=== PATIENT | male | born 1970 | race Caucasian/White ===

== ENCOUNTER 2021-06-13 09:01 | Emergency (ER) | payer OTHER, SELFPAY ==
--- NOTE | ~2021-06-13 | XR_ITS ---
EXAMINATION: XR CHEST CLINICAL INFORMATION: Cough with chest pain and shortness of breath COMPARISON: None TECHNIQUE: AP portable view of the chest was obtained. FINDINGS: Heart normal size. No evidence of pulmonary edema. No pneumothorax or pleural effusion. No confluent disease. About the left lower lung there is an oval density measuring approximately 1.5 x 0.8 cm in size this does not appear to represent nipple shadow. About the right upper lobe there is an irregular density which may represent superimposition of densities however nodule not excluded. This measures approximately 1 cm in diameter. XR/XR chest 1V IMPRESSION: No evidence of pulmonary edema or significant acute parenchymal disease. Lung densities as described which CT scan of the chest may be of help in further evaluation.
[2021-06-13 09:07] VITALS: BP 133/79; PULSE 112; RESP 24; TEMP 37.8; O2SAT 96; BMI 23.9
[2021-06-13] MEDS: Acetaminophen 325 MG TABLET 650 MG PO (09:12)
--- NOTE | 2021-06-13 09:57 | ED_ITS ---
HPI - General Adult General Chief complaint: General Medical Stated complaint: diff breathing, cough Time Seen by Provider: 06/13/21 09:44 Source: patient Mode of arrival: ambulatory Limitations: no limitations History of Present Illness HPI narrative: 51-year-old male who presents emergency department for evaluation of headache, cough, shortness of breath x1 half weeks. Patient states that he has a cough which is productive of bright yellow sputum which is occasionally thickened occasionally thin. He has had subjective fever intermittently. He states that he is having chest pain. He points to the center of his chest when asked to localize the pain. States that it is a sharp pain that is worse with breathing and worse with movement-he believes that he pulled a muscle from coughing. He does feel short of breath and has dyspnea on exertion. States that he is having pain in both ears with decreased hearing the right ear. Related Data Previous Rx's Medication Instructions Recorded amoxicillin 875 mg-potassium 1 tab PO Q12H 10 Days #20 tab 06/13/21 clavulanate 125 mg tablet (Augmentin) Allergies Allergy/AdvReac Type Severity Reaction Status Date / Time cephalexin [From Keflex] Allergy Unknown Verified 06/13/21 09:10 haloperidol [From Haldol] Allergy Unknown Verified 06/13/21 09:10 latex Allergy Unknown Verified 06/13/21 09:10 Review of Systems Review of Systems: Yes all other systems are reviewed and are negative [facility] Past Medical History Medical History Epilepsy Narcolepsy Transgender Social History Social History Advance Directives: No Advance Directives Information Provided: No Physical Exam Vital Signs: Vital Signs: Last Vital Signs Temp 100.0 F 06/13/21 09:07 Pulse 112 H 06/13/21 09:07 Resp 24 H 06/13/21 09:07 BP 133/79 06/13/21 09:07 Pulse Ox 96 06/13/21 09:07 Body Mass Index 23.9 Const: General: cooperative and no acute distress Orientation/consciousness: oriented to person and oriented to place Limitations: no limitations HENMT: Head: Yes normal to inspection, Yes normocephalic and Yes atraumatic Ears: external ears normal, TM's normal bilaterally and other (Bilateral cerumen impaction removed by irrigation by nurse) General nose exam: Normal external nose present Face and sinus: Yes sinus tenderness (Bilateral frontal and maxillary, moderate) Mouth: Normal oral and palatal mucosa present Throat: Yes posterior oropharynx normal Eyes: General: appearance normal, both eyes and all related structures Pupils: Equal, round and reactive pupils present Neck: Neck: Yes normal visual inspection, Yes no lymphadenopathy, Yes trachea midline and Yes supple Chest: Chest palpation & inspection: normal inspection of the chest and normal palpation of entire chest wall Resp: Effort & Inspection: normal respiratory effort and able to speak in complete sentences Auscultation: rhonchi (Diffuse) Cardio: Rate: regular rate Rhythm: regular rhythm Heart sounds: S1 normal heart sound present, S2 normal heart sound present and no murmurs GI: Inspection: Yes normal to inspection Palpation (GI): Soft to palpation, nontender and no guarding Auscultation: normal bowel sounds : General: Yes no CVA tenderness Back/Spine/Pelvis: Back: no CVA tenderness Skin: General skin exam: no rashes or lesions noted Neuro: General: oriented to person and oriented to place Cranial nerves: Yes CN's II-XII intact bilaterally and Yes Equal, round and reactive pupils present Cognition (Neuro): normal cognition Motor exam (neuro): 5/5 motor strength present throughout Extrem: General: Yes normal to inspection Psych: Appearance: grossly normal Speech and movement: Normal speech and movement present Affect: normal affect Attitude: cooperative Thought process: Normal thought process present Thought content: Normal thought content present Course Course Course Narrative: 51-year-old male who presents emergency department for evaluation of headache, shortness of breath and productive cough x1 week. The patient has had subjective fever as well as pleuritic chest pain. Vital signs revealed tachycardia with a pulse of 112 and tachypnea with respiratory 24. Had a fever with a temperature of 100? F in his O2 saturation was 96% on room air. The patient did have tenderness palpation over his frontal and maxillary sinuses bilaterally. Lung exam revealed diffuse rhonchi. The patient was complaining of bilateral ear plane and he had cerumen impaction which was removed by your gauge [place] by the ED nurse. Tympanic membranes were clear after irrigation. Chest x-ray revealed no pneumonia. Radiologist noted some bilateral dense these but I reviewed this x-ray and did not think that these are since the incident. Patient will be treated for sinusitis and acute bronchitis with Augmentin 875/125 every 12 hours times 10 days. He was advised to take Tylenol and ibuprofen for his pain. He was given a work note not return to work until 06/17/2021. He was given printed and verbal instructions and discharged home. Medical Decision Making Lab Data Labs: Lab Results 06/13/21 Range/Units 09:14 Influenza Type A (PCR) NEGATIVE (Negative) Influenza Type B (PCR) NEGATIVE (Negative) RSV RNA Qual (PCR) NEGATIVE (Negative) SARS-CoV-2 RNA (RT-PCR) NEGATIVE (Negative) Discharge Plan Discharge Clinical Impression: Bronchitis Sinusitis Qualifiers: Sinusitis location: unspecified location Chronicity: acute Recurrence: non- recurrent Qualified Code(s): J01.90 - Acute sinusitis, unspecified Patient Disposition: Home, Self-Care Instructions: Sinusitis (ED), Acute Bronchitis (ED) Additional Instructions: Your COVID-19, influenza and RSV virus test were all negative. Your chest x-ray did not reveal any evidence for pneumonia. Your symptoms and findings are consistent with sinus infection and bronchitis. Take Augmentin (amoxicillin/clavulanic acid 875/125) 1 pill every 12 hours for 10 days. Take ibuprofen 200 mg pills, 3 pills every 6 hours as needed for pain. Take Tylenol (acetaminophen) 500 mg pills, 2 pills every 4 to 6 hours as needed for pain. Follow-up with your doctor in 2 days. Please return to the emergency department if your symptoms get worse or if you develop any symptoms that are concerning to you. Prescriptions: New amoxicillin-pot clavulanate [Augmentin] 875-125 mg tablet 1 tab PO Q12H 10 Days Qty: 20 RF: 0 Stand Alone Forms: Work/School Release
[2021-06-13 09:58] LABS: Influenza A PCR NEGATIVE (Negative); Influenza B PCR NEGATIVE (Negative); Resp Syncy Virus RNA Qual PCR NEGATIVE (Negative); SARS COV2 PCR INHOUSE NEGATIVE (Negative)
--- NOTE | 2021-06-13 11:40 | PC.NURSE ---
pt's ear irrigated for large amts wax
== END 2021-06-13 11:44 | disposition home or self-care (01) ==
PROVIDERS: Emergency Provider Emergency Medicine Emergency Medical Services
DX: J01.90 Acute sinusitis, unspecified (principal); J40 Bronchitis, not specified as acute or chronic; Z20.822 Contact with and (suspected) exposure to COVID-19
CPT/HCPCS: 0241U; 36415; 71045; 99283

== ENCOUNTER 2025-04-26 22:21 | Emergency (ER) | payer OTHER, SELFPAY ==
--- NOTE | ~2025-04-26 | XR_ITS ---
CLINICAL HISTORY: fall 2 view chest x-ray Comparison: None provided Findings: No consolidation or effusion. Normal size heart. No acute fracture. IMPRESSION: 1. No acute findings. This document has been electronically signed by: Gio Greenberg MD on 04/26/2025 23:21:09
[2025-04-26 22:24] VITALS: BP 145/80; PULSE 100; RESP 15; TEMP 36.4; O2SAT 99; BMI 24.5
[2025-04-27 00:42] VITALS: BP 143/81; PULSE 92; RESP 16; TEMP 36.9; O2SAT 96
--- OUTSIDE RECORDS SUMMARY | 2025-04-27 00:51 | XMS_ITS | Encounter Summary ---
Author Organization [employer] Address [address] [place] [address] [place] [address] Care Team Providers Care Press Feeder Broomcorn Name Role Phone Roya King Unavailable Won Lino Primary Care Provider [phone] Reason for Visit * Reason Comments Med Refill Encounter Details Date Type Department Care Team ([facility] st Contact Info) Description 08/06/2024 Refill [facility] [address] [place] [phone] Won Lino PA [address] [place], [place] [phone] Transgender man on hormone therapy Social History Tobacco Use Types Packs/Day Years Used Date Smoking Tobacco: Every Day Cigarettes 0.5 40 Smokeless Tobacco: Never Alcohol Answer Date Recorded How often do you have a drink containing alcohol ? 1 10/24/2023 How many drinks containing a lcohol do you have on a typical day when you are drinking? 0 10/24/2023 How often do you have six or more drinks on one occasion? 0 10/24/2023 Housing Stability Answer Date Recorded What is your housing situation today? I have erlin bo 07/25/[address] you li ve. Do you have problems with any of the following? None of the above 07/25/2023 Food Insecurity Answer Date Recorded Within the past 12 months, y ou worried that your food would run out before you got money to buy more: Never True 06/28/2024 Within the past 12 months,th e food you bought just didn't last and you didn't have enough money to get more: Never True Transportation Answer Date Recorded In the past 12 months, has l ack of transportation kept you from medical appts, meetings, work or from getting things needed for daily living? No 06/28/2024 Intimate Partner Violence Answer Date R ecorded Within the last year, have y ou been afraid of your partner or ex-partner? 2 10/24/2023 Within the last year, have y ou been humiliated or emotionally abused in other ways by your partner or ex-partner? 2 Within the last year, have y ou been kicked, hit, slapped, or otherwise physically hurt by your partner or ex-partner? 2 10/24/2023 Within the last year, have y ou been raped or forced to have any kind of sexual activity by your partner or ex-partner? 2 10/24/2023 Utilities Answer Date Recorded In the past 12 months, has t he electric, gas, oil or water company threatened to shut off services in your home? No 07/25/2023 Depression Answer Date Recorded Patient Health Questionnaire-2 Score 0 07/25/2023 Internet Access Answer Date Recorded Internet Access Q1 Yes 06/28/2024 Internet Access Q2 Not on file 06/28/2024 Comments Unknown Sex and Gender Information Value Date Recorded Sex Assigned at Female 07/04/2022 10:15 AM EST Legal Sex Male 8:40 PM EDT Gender Identity Two Spirit 12/29/2024 10:22 AM EDT Sexual Orientation Aromantic 12/29/2024 10 :22 AM EDT Sexual Orientation Asexual 12/29/2024 10 :22 AM EDT documented as of this encounter Miscellaneous Notes * Telephone Encounter - JUSTIN Ortiz - 08/06/2024 12:33 PM EST Incorrect dosing. Current dosing is Inject 1 mL (200 mg) into the muscle every 14 (fourteen) days. Alternatively inject 0.5 mL (100mg) every 7 days. And this was r/f on 07/16 so should be all set. Can you please make sure? * Telephone Encounter - Stefania Minmarva - 08/06/2024 9:44 AM EST PCP: JUSTIN Ortiz Last in-person office visit: 06/28/2024 JUSTIN Ortiz Lab Results Component Value Date BUN 16 05/12/2024 CREATININE 0.85 05/12/2024 K 4.3 05/12/2024 Assessment: [x] Protocol passed [] Lab due [] Appointment due Plan: [x] Please refill for 30 days [] Lab [] BMP [] TSH [] A1C [] Appointment due: Future Appointments Date Time Provider Department Center 08/09/2024 10:40 AM JUSTIN Ortiz [facility] Comments: documented in this encounter Plan of Treatment Not on file documented as of this encounter Visit Diagnoses Diagnosis Transgender man on hormone therapy documented in this encounter Care Teams Press Feeder Broomcorn Relationship Specialty Start Date End Date Won Lino PA [address] [place] [address] PCP - General Family Medicine 06/17/23 Roya King [address] [place] [address] 02/20/23 documented as of this encounter
--- OUTSIDE RECORDS SUMMARY | 2025-04-27 00:51 | XMS_ITS | Encounter Summary ---
Author Organization [facility] Address [address] [facility] [address] [place] [address] Phone Care Team Providers Care Franchise Business Consultant Name Role Phone Kemi Dumont DREDGING INSPECTOR Primary Care Provider [phone] Connor Haque MD Unavailable Unavailable Suad Haque DREDGING INSPECTOR Primary Care Provider Scott Davey NP Primary Care Provide r Won Lino Primary Care Provider [phone] Encounter Details Date Type Department Care Team (Late st Contact Info) Description 03/16/2020 Procedure Pass [facility], Ct Scan - [address] [address] Social History Tobacco Use Types Packs/Day Years Used Date Smoking Tobacco: Every Day Cigarettes Smokeless Tobacco: Never Alcohol Use Standard Drinks/Week Comments Yes 0 (1 standard drink = 0.6 oz pur e alcohol) occasionally Comments No Sex and Gender Information Value Date Recorded Sex Assigned at Female 10/25/2020 9:39 AM EDT Legal Sex Male 10:37 AM EDT Gender Identity Transgender Male 10/25/2020 9:39 AM EDT Sexual Orientation Queer 03/03/2019 8: 17 AM EDT documented as of this encounter Plan of Treatment Not on file documented as of this encounter Visit Diagnoses Not on filedocumented in this encounter Additional Health Concerns Infection Onset Date Last Indicated Resolved Time 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 Infection Utility Neg MRSA PCR over 2 years since a + MRSA 06/28/2015 06/28/2015 09/18/2022 1:[address] 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 05/11/2019 09/28/2023 1:24 AM EST CoV-Risk 06/07/2020 06/08/2020 06/21/2020 1:24 AM EST CoV-Risk 08/16/2020 08/17/2020 08/26/2020 1:24 AM EST CoV-Risk 03/16/2022 03/16/2022 03/27/2022 1:22 AM EDT CoV-Risk Comment:2 neg covid 09/16/2022 09/16/2022 09/17/2022 6:[address] documented as of this encounter Care Teams Franchise Business Consultant Relationship Specialty Start Date End Date Kemi Dumont NP PCP - General 03/01/19 12/17/21 Suad Haque NP [address] [place] [address] PCP - General Family Medicine 12/18/21 08/04/22 Scott Davey NP [address] [place] [address] PCP - General 08/05/22 03/21/25 Won Lino PA [address] [place] [address] PCP - General Physician Radiographic Technologist 03/22/25 Connor Haque MD Internal Medicine 03/01/19 documented as of this encounter Additional Source Comments The information contained in this document represents components of the legal health record. It is not the complete legal health record.[facility]
--- OUTSIDE RECORDS SUMMARY | 2025-04-27 00:51 | XMS_ITS | Encounter Summary ---
Author Organization [employer] Address [address] [place] [address] [place] [address] Care Team Providers Care Mill Beam Fitter Name Role Phone Roya King Unavailable Won Lino Primary Care Provider [phone] Reason for Visit * Reason Comments Med Refill Encounter Details Date Type Department Care Team ([facility] st Contact Info) Description 08/06/2024 Refill [facility] [address] [place] [phone] Won Lino PA [address] [place], [place] [phone] Transgender man on hormone therapy Social History [...] encounter Miscellaneous Notes * Telephone Encounter - Cathi Mendez LPN - 08/16/2024 2:30 PM EST Returned pt call. LMTCB * Telephone Encounter - Ashely Mcdonald - 08/16/2024 12:55 PM EST Patient is calling back about lab results Call back # [phone] * Telephone Encounter - JUSTIN Ortiz - 08/06/2024 3:13 PM EST Duplicate request and too early for refill. Also incorrect dosing. * Telephone Encounter - Delma Khan MA - 08/06/2024 2:05 PM EST PCP: JUSTIN Ortiz Last in-person office visit: 06/28/2024 JUSTIN Ortiz Lab Results Component Value Date BUN 16 05/12/2024 CREATININE 0.85 05/12/2024 K 4.3 05/12/2024 Assessment: [] Protocol passed [] Lab due [] Appointment due Plan: [] Please refill for 30 days [] Lab [] BMP [] TSH [] A1C [] Appointment due: Future Appointments Date Time Provider Department Center 08/09/2024 10:40 AM JUSTIN Ortiz [facility] Comments: documented in this encounter Plan of Treatment Not on file documented as of this encounter Visit Diagnoses Diagnosis Transgender man on hormone therapy documented in this encounter Care Teams Mill Beam Fitter Relationship Specialty Start Date End Date Won Lino PA [address] [place] [address] PCP - General Family Medicine 06/17/23 Roya King [address] [place] [address] 02/20/23 documented as of this encounter
--- OUTSIDE RECORDS SUMMARY | 2025-04-27 00:51 | XMS_ITS | Encounter Summary ---
Author Organization [employer] Address [address] [place] [address] 7 [place] [address] Care Team Providers Care Loading Shovel Oiler Name Role Phone Roya King Unavailable Won Lino Primary Care Provider [phone] Reason for Visit * Reason Onset Date Comments Med Refill 07/17/2024 Encounter Details Date Type Department Care Team ([facility] st Contact Info) Description 07/17/2024 Refill [facility] [address] [place] [phone] Won Lino PA [address] [place] [address] Social History Tobacco Use Types Packs/Day Years [...] Diagnoses Not on filedocumented in this encounter Care Teams Loading Shovel Oiler Relationship Specialty Start Date End Date Won Lino PA [address] [place] [address] PCP - General Family Medicine 06/17/23 Roya King [address] [place] [address] 02/20/23 documented as of this encounter
--- OUTSIDE RECORDS SUMMARY | 2025-04-27 00:51 | XMS_ITS | Encounter Summary ---
Author Organization [employer] Address [address] [place] [address] 7 [place] [address] Care Team Providers Care Needle Valve Operator Name Role Phone Roya King Unavailable Won Lino Primary Care Provider [phone] Encounter Details Date Type Department Care Team (Late st Contact Info) Description 06/17/2024 Telephone [facility] [address] [place] [address] Won Lino PA [address] [place], [place] [phone] Social History Tobacco Use Types Packs/Day Years [...] before you got money to buy more: Often true 07/25/2023 Within the past 12 months,th e food you bought just didn't last and you didn't have enough money to get more: Often true Transportation Answer Date Recorded In the past 12 months, has l ack of transportation kept you from medical appts, meetings, work or from getting things needed for daily living? Yes, it has kept me from medical appointments or getting medications.;Yes, it has kept me from non-medical meetings, work, or getting things that I need 07/25/2023 Intimate Partner Violence Answer Date R ecorded [...] Recorded Patient Health Questionnaire-2 Score 0 07/25/2023 Comments Unknown Sex and Gender Information Value Date Recorded Sex Assigned at Female 07/04/2022 10:15 AM EST Legal Sex Male 8:40 PM EDT Gender Identity Two Spirit 12/29/2024 10:22 AM EDT Sexual Orientation Aromantic 12/29/2024 10 :22 AM EDT Sexual Orientation Asexual 12/29/2024 10 :22 AM EDT documented as of this encounter Miscellaneous Notes * Telephone Encounter - Alexandra Meza - 06/17/2024 8:27 AM EST Left a voicemail requesting their testosterone be sent to the [facility] in [facility] documented in this encounter Plan of Treatment Not on file documented as of this encounter Visit Diagnoses Not on filedocumented in this encounter Care Teams Needle Valve Operator Relationship Specialty Start Date End Date Won Lino PA [address] [place] [address] PCP - General Family Medicine 06/17/23 Roya King [address] [place] [address] 02/20/23 documented as of this encounter
--- OUTSIDE RECORDS SUMMARY | 2025-04-27 00:51 | XMS_ITS | Encounter Summary ---
Author Organization [facility] Address [address] [facility] [address] [place] [address] Phone Care Team Providers Care Tree Cutter Name Role Phone Kemi Dumont NP Primary Care Provider [phone] Connor Haque MD Unavailable Unavailable Suad Haque BOAT JOINER HELPER Primary Care Provider Scott Davey NP Primary Care Provide r Won Lino Primary Care Provider [phone] Encounter Details Date Type Department Care Team (Latest Contact Info) Description 08/16/2020 Transcribe Orders Virtual Department [address] [place] [address] Kemi Dumont, BOAT JOINER HELPER [address] [place] [address] Fever, unspecified fever cause (Primary Dx); Muscle ache Social History Tobacco Use Types Packs/Day Years [...] on file documented as of this encounter Results * COVID-19 PCR Order (08/17/2020 8:01 AM EST) COVID Testing Status Specimen received in analyzing lab. [facility] Symptomatic? YES [facility] Other 08/17/2020 8:01 AM EST 08/17/2020 3:46 PM EST Kemi Dumont BOAT JOINER HELPER BODY FLUIDS AND STOOLS OR DERABLES Final Result [facility] [address] [place] [address] 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 05/11/2019 09/28/2023 1:24 AM EST CoV-Risk 08/16/2020 08/17/2020 08/26/2020 1:24 AM EST CoV-Risk 03/16/2022 03/16/2022 03/27/2022 1:22 AM EDT CoV-Risk Comment:2 neg covid 09/16/2022 09/16/2022 09/17/2022 6:[address] documented as of this encounter Care Teams Tree Cutter Relationship Specialty Start Date End Date Kemi Dumont NP PCP - General 03/01/19 12/17/21 Suad [place] [address] PCP - General Family Medicine 12/18/21 08/04/22 Scott Davey NP [address] [place] [address] PCP - General 08/05/22 03/21/25 Won Lino PA [address] [place] [address] PCP - General Physician Procurement Consultant 03/22/25 Connor Haque MD Internal Medicine 03/01/19 documented as of this encounter Additional Source Comments The information contained in this document represents components of the legal health record. It is not the complete legal health record.[facility]
--- OUTSIDE RECORDS SUMMARY | 2025-04-27 00:51 | XMS_ITS | Encounter Summary ---
Author Organization [employer] Address [address] [place] [address] [place] [address] Care Team Providers Care Boiler Repair Supervisor Name Role Phone Roya King Unavailable Won Lino Primary Care Provider [phone] Reason for Visit * Reason Comments Med Refill Encounter Details Date Type Department Care Team (Late st Contact Info) Description 04/23/2025 Refill [facility] [address] [place] [phone] Won Lino PA [address] [place] [address] Urinary symptom or sign Social History Tobacco Use Types Packs/Day Years Used Date Smoking Tobacco: Every Day Cigarettes 0.5 40 Smokeless Tobacco: Never Alcohol Use Standard Drinks/Week Comments Never 0 (1 standard drink = 0.6 oz pur e alcohol) Alcohol Answer Date Recorded How often do [...] encounter Miscellaneous Notes * Telephone Encounter - [facility] [place] - 04/25/2025 8:39 AM EDT PCP: JUSTIN Ortiz Last in-person office visit: 03/04/2025 JUSTIN Ortiz Lab Results Component Value Date BUN 16 05/12/2024 CREATININE 0.85 05/12/2024 K 4.3 05/12/2024 Assessment: [x] Protocol passed [] Lab due [] Appointment due Plan: [x] Please refill for 30 days [] Lab [] BMP [] TSH [] A1C [] Appointment due: No future appointments. Comments: documented in this encounter Plan of Treatment Not on file documented as of this encounter Visit Diagnoses Diagnosis Urinary symptom or sign documented in this encounter Care Teams Boiler Repair Supervisor Relationship Specialty Start Date End Date Won Lino PA [address] [place] [address] PCP - General Family Medicine 06/17/23 Roya King [address] [place] [address] 02/20/23 documented as of this encounter
--- OUTSIDE RECORDS SUMMARY | 2025-04-27 00:51 | XMS_ITS | Encounter Summary ---
Author Organization [employer] Address [address] [place] [address] [place] [address] Care Team Providers Care Automation Architect Name Role Phone Suad Haque Unavailable Unavailable Suad Haque Primary Care Provider Unavailab Hannah Owensionna Unavailable CarterGloria Unavailable [phone] Obey Sánchez Unassigned Primary Care Provider Won Zabala Primary Care Provider [phone] Reason for Visit * Reason Comments Med Refill Encounter Details Date Type Department Care Team (Late st Contact Info) Description 06/03/2023 Refill [facility] [address] [place] [id number] Holly Patel FNP [address] [place] [address] Seizure disorder, focal sensory (CMS/HCC); Bipolar disorder with severe depression (CMS/HCC) Social History Tobacco Use Types Packs/Day Years Used Date Smoking Tobacco: Every Day Cigarettes 0.5 40 Smokeless Tobacco: Never Comments Unknown Sex and Gender Information Value [...] as of this encounter Visit Diagnoses Diagnosis Seizure disorder, 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
--- OUTSIDE RECORDS SUMMARY | 2025-04-27 00:51 | XMS_ITS | Encounter Summary ---
Author Organization [employer] Address [address] [place] [address] 7 [place] [address] Care Team Providers Care Telecommunications Project Manager Name Role Phone Roya King Unavailable Won Lino Primary Care Provider [phone] Reason for Visit * Reason Onset Date Comments Med Refill 2025 Encounter Details Date Type Department Care Team (Late st Contact Info) Description 2025 Refill [facility] [address] [place] [address] Leelee Barone LPN [address] [place] [id number] Panic disorder Social History Tobacco Use Types Packs/Day Years [...] * Telephone Encounter - JUSTIN Ortiz - 04/22/2025 7:59 AM EDT Refusing request as pt admitted to inpatient psych unit in [place] yesterday. * Telephone Encounter - Leelee Barone LPN - 2025 5:02 PM EDT PCP: JUSTIN Ortiz Last in-person office visit: Visit date not found PDMP last fill:03/04 Refill due:04/01 Last contract date: No scanned or signed documents on file Last tox screen date: Last Urine/Oral Toxicology Screen: 09/06/24 0000 Lab Results Component Value Date AMPHETAMINES NEGATIVE 09/06/2024 BARBITURATES NEGATIVE 09/06/2024 BENZODIAZEPI POSITIVE (A) 09/06/2024 BUPRENORPHIN NEGATIVE 09/06/2024 FENTANYL NEGATIVE 09/06/2024 HEROINMETAB NEGATIVE 09/06/2024 MDMA NEGATIVE 09/06/2024 MEPROBAMATE NEGATIVE 09/06/2024 NICOTINEMET POSITIVE (A) 09/06/2024 OPIATES NEGATIVE 09/12/2023 PHENCYCLIDIN NEGATIVE 09/06/2024 TAPENTADOL NEGATIVE 09/06/2024 ZOLPIDEM NEGATIVE 09/06/2024 Assessment: [] Nursing protocol passed [x] Contract due [x] Toxicology due [] Appointment due [] PDMP red flags [] Care plan adjustment needed Plan: [x] Please approve refill for 28 days [] Appointment with nursing: [] Appointment with JUSTIN Ortiz: Future Appointments Date Time Provider Department Center 06/13/2025 2:00 PM JUSTIN Ortiz [facility] Comments: Pt needs tox and contract documented in this encounter Plan of Treatment Not on file documented as of this encounter Visit Diagnoses Diagnosis Panic disorder Panic disorder without agoraphobia documented in this encounter Care Teams Telecommunications Project Manager Relationship Specialty Start Date End Date Won Lino PA [address] [place] [address] PCP - General Family Medicine 06/17/23 Roya King [address] [place] [address] 02/20/23 documented as of this encounter
--- OUTSIDE RECORDS SUMMARY | 2025-04-27 00:51 | XMS_ITS | Clinical Summary ---
Author Organization [employer] Address [address] [place] [address] 7 [place] [address] Care Team Providers Care Dialysis Social Worker Name Role Phone Roya King Unavailable Won Lino Primary Care Provider [phone] Allergies Active Allergy Reactions Criticality Noted Date Comments Bupropion 03/01/2019 Cephalexin Anaphylaxis High 01/04/2018 Other reaction(s): Unknown Clozapine 03/01/2019 Codeine 03/01/2019 Declines this is an allergy Fluoxetine 03/01/2019 Haloperidol 06/22/2017 Kiwi Extract 06/17/2017 Latex 06/04/2017 Midazolam 03/01/2019 Morphine 03/01/2019 Declines this is an allergy Paroxetine Hcl 03/01/2019 Sertraline 03/01/2019 Medications * This document contains information received from the source organization and may not represent a complete record from that organization. Syringe/Needle, Disp, (B-D 3CC LUER-NIKI SYR 22GX1 ) 22G X 1 3 ML miscIndications:T ransgender man on hormone therapy Use as directed inject testosterone. 4 each 2 024 Active Needle, Disp, (BD SafetyGlide Needle) 25G X 1 miscIndications:T ransgender man on hormone therapy Use as directed once weekly to inject medication. 12 each Active ipratropium-albut ronna (Combivent Respimat) 20-100 MCG/ACT inhalerIndication s:Moderate persistent asthma without complication Inhale 1 puff if needed in the morning, at noon, in the evening, and at bedtime for wheezing or shortness of breath. 4 g 11 Active gabapentin (Neurontin) 400 MG capsuleIndication s:Toxic polyneuropathy (CMS/HCC) Take 2 capsules (800 mg) by mouth 3 times daily. 180 capsule 1 2024 Active BD Disp [place] 18G X 1-08/05 miscIndications:T ransgender man on hormone therapy USE DIRECTED TO DRAW UP TESTOSTERONE INTO SYRINGE ONCE WEEKLY 12 each Active methylphenidate (Ritalin) 5 MG tablet Take 1 tablet (5 mg) by mouth 2 times daily. 60 tablet 2024 Active diazePAM (Valium) 5 MG tabletIndications :Anxiety,Muscle Spasm Take 0.5 tablets (2.5 mg) by mouth in the morning. 30 tablet 2 2024 Active testosterone cypionate (Depo-Testosteron e) 200 MG/ML injectionIndicati ons:Transgender man on hormone therapy Inject 1 mL (200 mg) into the muscle every 14 (fourteen) days. Alternatively inject 0.5 mL (100mg) every 7 days. 4 mL 2 Active clonazePAM (KlonoPIN) 2 MG tabletIndications :Schizoaffective disorder, bipolar type (CMS/HCC) Take 1 tablet (2 mg) by mouth if needed in the morning and at bedtime for seizures. 60 tablet 2024 Active Syringe, Disposable, (B-D SYRINGE LUER-NIKI 3CC) 3 ML miscIndications:T ransgender man on hormone therapy Use as directed once weekly to draw up and inject medication. 12 each Active Needle, Disp, 23G X 1 misc Use as directed once weekly to inject medication intramuscularly . 12 each Active diazePAM (Valium) 5 MG tabletIndications :Anxiety,Muscle Spasm Take 0.5 tablets (2.5 mg) by mouth in the morning. 30 tablet 2 025 2025 Active tamsulosin (Flomax) 0.4 MG 24 hr capsuleIndication s:Urinary symptom or sign TAKE 1 CAPSULE BY MOUTH EVERY DAY 90 capsule Active Needle, Disp, 23G X 1 misc Use as directed once weekly to inject medication intramuscularly . 12 each 2024 Discontinued(R eorder (will not trigger notification to Pharmacy)) clonazePAM (KlonoPIN) 2 MG tabletIndications :Schizoaffective disorder, bipolar type (CMS/HCC) Take 1 tablet (2 mg) by mouth if needed in the morning and at bedtime for seizures. 60 tablet 2 2024 Discontinued(R eorder (will not trigger notification to Pharmacy)) methylphenidate (Ritalin) 5 MG tablet Take 1 tablet (5 mg) by mouth 2 times daily. 60 tablet 025 2024 Discontinued(R eorder (will not trigger notification to Pharmacy)) diazePAM (Valium) 5 MG tabletIndications :Anxiety,Muscle Spasm Take 0.5 tablets (2.5 mg) by mouth in the morning. 30 tablet 2 025 2024 Discontinued(R eorder (will not trigger notification to Pharmacy)) BD Disp [place] 18G X 1-1/2 miscIndications:T ransgender man on hormone therapy USE DIRECTED TO DRAW UP TESTOSTERONE INTO SYRINGE ONCE WEEKLY 12 each 2024 Discontinued(R eorder (will not trigger notification to Pharmacy)) Syringe, Disposable, (B-D SYRINGE LUER-NIKI 3CC) 3 ML miscIndications:T ransgender man on hormone therapy Use as directed once weekly to draw up and inject medication. 12 each 025 2024 Discontinued(R eorder (will not trigger notification to Pharmacy)) testosterone cypionate (Depo-Testosteron e) 200 MG/ML injectionIndicati ons:Transgender man on hormone therapy Inject 1 mL (200 mg) into the muscle every 14 (fourteen) days. Alternatively inject 0.5 mL (100mg) every 7 days. 4 mL 2 03/03/ 025 2024 Discontinued(R eorder (will not trigger notification to Pharmacy)) tamsulosin (Flomax) 0.4 MG 24 hr capsuleIndication s:Urinary symptom or sign Take 1 capsule (0.4 mg) by mouth Once per day. 30 capsule 2 025 2024 Discontinued Needle, Disp, 23G X 1 misc Use as directed once weekly to inject medication intramuscularly . 12 each 3 025 2024 Discontinued(R eorder (will not trigger notification to Pharmacy)) Syringe, Disposable, (B-D SYRINGE LUER-NIKI 3CC) 3 ML miscIndications:T ransgender man on hormone therapy Use as directed once weekly to draw up and inject medication. 12 each 3 2024 Discontinued(R eorder (will not trigger notification to Pharmacy)) testosterone cypionate (Depo-Testosteron e) 200 MG/ML injectionIndicati ons:Transgender man on hormone therapy Inject 1 mL (200 mg) into the muscle every 14 (fourteen) days. Alternatively inject 0.5 mL (100mg) every 7 days. 4 mL 2 025 2024 Discontinued(R eorder (will not trigger notification to Pharmacy)) methylphenidate (Ritalin) 5 MG tablet Take 1 tablet (5 mg) by mouth 2 times daily. 60 tablet 025 2024 Discontinued(R eorder (will not trigger notification to Pharmacy)) clonazePAM (KlonoPIN) 2 MG tabletIndications :Schizoaffective disorder, bipolar type (CMS/HCC) Take 1 tablet (2 mg) by mouth if needed in the morning and at bedtime for seizures. 60 tablet 025 2024 Discontinued(R eorder (will not trigger notification to Pharmacy)) Active Problems Problem Noted Date Diagnosed Date Syphilis 09/06/2024 Overview (09/06/2024): Hx/o syphilis treated in 2020. RPR at that time 1:4. Rechecked 08/2024 RPR 1:32 representing reinfection given > four-fold increase. Assessment & Plan (09/06/2024 3:27 PM EST): Keflex allg so treating with doxy 100mg BID x 28 days. Pt to obtain script today and begin treatment. Reviewed precautions for esophagitis. Complete treatment as prescribed. Recheck RPR in 6 months. Nursing to continue attempts to close loop with DP; they have been unable to reach their office to confirm latest details. Neuropathy of left upper extremity 09/06/2024 Assessment & Plan (11/08/2024 5:10 PM EDT): Stable left cubital tunnel syndrome. Labs pending (TSH, B12, folate) for pt to complete. Continue activity modification and home exercises. Assessment & Plan (09/06/2024 3:28 PM EST): Chronic LUE neuropathy seemingly consistent with cubital tunnel syndrome. - Provide exercises for cubital tunnel syndrome. Additional labs to check thyroid, vitamin B12, and folic acid levels. Patient declined referral to a hand specialist. Follow-up in one month to assess progress. Polysubstance abuse 09/12/2023 Assessment & Plan (09/12/2023 1:41 PM EST): Ongoing polysubstance abuse. POCT Utox + today for cocaine, methamphetamines, amphetamines, THC. Will send out to lab for further testing and continue to monitor. Discuss further w/ applied psychology teacher at visit scheduled for next month. Transgender man on hormone therapy 07/25/2023 Overview (06/28/2024): Started therapy in 40's. States has changed his life for the better. Feels comfortable with gender presentation. Assessment & Plan (03/04/2025 5:12 PM EDT): Transgender man stable on hormone therapy with testosterone 200mg q2 weeks or 100mg weekly. Continue to monitor; repeat order placed for testosterone lab monitoring to be done in the morning midway between injections. Orders: Testosterone, Total, MS; Future Assessment & Plan (12/30/2024 3:14 PM EDT): Transgender man stable on hormone therapy with testosterone 200mg q2 weeks or 100mg weekly. Refill sent to [facility] in [place]. Continue to monitor. Assessment & Plan (08/09/2024 11:31 AM EST): Transgender man stable on hormone therapy. Clarified dosing regimen is 200 mg (1 mL) every two weeks or 100 mg (0.5 mL) weekly. Continue to monitor. Assessment & Plan (06/28/2024 2:13 PM EST): Transgender man stable on hormone therapy. 05/2024 T therapeutic at 556. Continue current therapy and continue to monitor. Assessment & Plan (12/14/2023 8:51 PM EDT): Stable. Pt due for monitoring labs but prefers to wait until on more consistent dosing; has missed last 2 weeks due to issues with unstable housing. Will obtain when able to be more consistent. Assessment & Plan (09/12/2023 1:34 PM EST): Stable. Due for repeat monitoring labs previously placed. Given currently 2 weeks overdue from last injection, pt will restart this week then return for repeat mid-dose labs in 6-8 wks prior to next f/u visit for review together at that time. Assessment & Plan (07/25/2023 1:45 PM EST): Stable. Continue current dose testosterone and obtain repeat monitoring labs this month. Pt to return to provide labs midway in injection. Back pain due to injury 12/13/2022 Asthma 12/13/2022 Overview (12/30/2024): Stable asthma on prn combivent. Assessment & Plan (12/30/2024 3:14 PM EDT): Stable. Combivent refilled to [facility]. Continue to monitor. Assessment & Plan (07/25/2023 1:48 PM EST): Stable. Combivent refilled. Continue to monitor. Obtain more info, consider order PFTs and/or regimen escalation if needed. Panic disorder 12/13/2022 Overview (12/31/2023): Currently in Withdrawal from klonipin - we will begin a patient driven taper. Damion would like to start with current dosing of 1 qam and 2 mg at bedtime then we will reduce when he is comfortable to reduce - he is wnating to reduce his imprint within [employer]. ADHD, impulsive type 07/04/2022 Overview (12/31/2023): Forgetful, impulsive , speech is rapid and intense Patient is also in withdrawal from klonipin at this time. This is overwhelming. Narcolepsy and cataplexy 07/04/2022 Overview (12/31/2023): Has had it since 20s, nod head then pass out A [place], Coq10, Thianine, Thiamine, Glutamine and magnesium, Seizure disorder, focal sensory 07/04/2022 Overview (07/25/2023): Self-discontinued keppra. States it is poisoning him. No recent seizures. Assessment & Plan (12/14/2023 8:50 PM EDT): Stable. Offered neuro referral for specialist evaluation/ management. Pt declining for now - prefers to wait until more stable housing then revisit. In interim continue klonopin and continue to monitor. Assessment & Plan (09/12/2023 1:36 PM EST): Stable. Continue klonopin and continue to monitor. Encourage further evaluation and alternative AED; currently complicated by active schizoaffective bipolar disorder. Assessment & Plan (07/25/2023 1:47 PM EST): Stable. Continue klonopin. Discuss further at future visit to obtain more info and consider alternative AED. Sheltered homelessness 07/04/2022 Assessment & Plan (12/14/2023 8:52 PM EDT): Will be temporarily residing at ex-girlfriend's in [place], [place], while awaiting more permanent solution possibly apartment in [place]. 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 Tic disorder 10/22/2021 Intractable nausea and vomiting 05/11/2019 Overview (12/13/2022): Last Assessment & Plan: Patient was initially hospitalized 05/09- where he was found to have a large left ureteral stone measuring 10 mm with hydronephrosis and question of ileus. He underwent cystoscopy and placement of left ureteral stent, and postprocedure, was very insistent upon discharge. In fact did not wait to receive final paperwork and left the hospital. He returned back to the ED with nausea vomiting and abdominal pain one day later. He may have a mild ileus contributing to his symptoms. Stent was removed today by urology and he is gradually improving with supportive management --Due to IV fluids and PRN antiemetics --On clear liquid diet, may advance as tolerated this evening --On ceftriaxone. Urine culture from 05/07 polymicrobial. Culture from 05/11 now demonstrating [id number] colonies E. coli. Await sensitivities Kidney stone 05/09/2019 Overview (12/13/2022): Last Assessment & Plan: Presented with abdominal pain. CT imaging showed left ureteral stones and question of enterocolitis or ileus. Resolved leukocytosis overnight. He has been afebrile. --To OR today for cystoscopy and stent placement --N.p.o., IV fluids, PRN analgesics --IV ceftriaxone, likely can DC soon. UA from 05/07 showed TNTC WBC though culture demonstrated only mixed piter. UA 05/09 without pyuria Schizoaffective disorder, bipolar type 7 Assessment & Plan (12/30/2024 3:17 PM EDT): Stable but symptomatic bipolar-type schizoaffective disorder with slight improvement since last evaluation. Message sent to applied psychology teacher Vero Alvarado with request to send prescriptions to [facility] in [place]. He will attend f/u appt with her on 01/05 and f/u with me again on 01/24 or sooner if needed. Assessment & Plan (12/21/2024 12:21 PM EDT): Bipolar-type schizoaffective disorder with acute anxiety exacerbation and difficulties leaving the house. Called [facility] to advocate for dispensing diazepam prescribed by applied psychology teacher Vero Alvarado. They continue to refuse to fill the prescription due to discomfort around dual benzodiazepine therapy. Sent direct message to Vero Alvarado and requested she follow up directly with the pharmacy, or consider increasing klonopin dose/ frequency as an alternative to the new prescription of valium. Assessment & Plan (11/08/2024 5:09 PM EDT): Symptomatic though largely stable bipolar-type schizoaffective disorder. Not in acute crisis. Continue gabapentin 800mg TID and klonopin 1mg BID/ 2mg QHS. No concern for misuse/ diversion at this time. Assessment & Plan (09/06/2024 3:22 PM EST): Stable bipolar-type schizoaffective disorder. Continue klonopin 1mg BID and 2mg QHS. Continue gabapentin 800mg TID. Obtain oral drug test today for monitoring. Assessment & Plan (08/09/2024 11:32 AM EST): Stable bipolar-type schizoaffective disorder. Continue klonopin 1mg BID and 2mg QHS. Continue gabapentin - last refilled at dose 800mg BID but pt reports inferior benefit to prior dose 600mg QID. Will try 800mg TID then portal in on efficacy - at that time will either refill 800mg TID or 600mg QID depending on effect/ tolerability. Assessment & Plan (06/28/2024 2:23 PM EST): 54M currently stable and presenting with significant clinical improvements from prior visits. Suspect much of this is related to cessation of stimulant use/ abuse. Congratulated pt on cessation and encouraged continued abstinence. At this time I have agreed to prescribe patient's klonopin at current dose 1mg BID and 2mg QHS, and neurontin 400mg TID, per his request given clinical stability. We agreed that if pt begins to experience increase in symptoms or relapse on stimulant use then I would want to have industrial organizational psychologist involved again to take over treatment plan. Return in 1 month for continued monitoring/ management. Assessment & Plan (12/14/2023 8:52 PM EDT): Overall stable not in crisis though pt w/ persistent symptoms. Continuing current regimen for now and deferring to applied psychology teacher visit scheduled for 12/30. Assessment & Plan (09/12/2023 1:38 PM EST): Overall stable not in crisis though pt w/ persistent symptoms. Continuing current regimen for now and deferring to applied psychology teacher visit scheduled for next month. Assessment & Plan (07/25/2023 1:41 PM EST): 53 trans male with significant psych hx in need of specialty care for management of documented bipolar d/o, adhd, and methamphetamine addiction. STAT referral placed to applied psychology teacher Vero Alvarado. In interim agreed to continue filling klonopin. Pt amenable when informed I would not be comfortable prescribing methylphenidate. Will defer further discussion to psych. Resolved Problems Problem Noted Date Diagnosed Date Resolved Date Schizoaffective disorder 09/21/202204/2024 Cellulitis of hand 09/15/2022 5 Overview (12/13/2022): Last Assessment & Plan: Patient reported spider bite he noticed on 09/12 on the dorsu of his right hand. Since then, the are has gradually become more red, warm and painful. In the ED, he was started on doxycycline for cellulitis on 09/14 at approximately noon. Later on 09/14, he developed fevers. On 09/15, fevers peaked at 102.7 and erythema had spread outside of prevousl marked borders. Labs at the time showed persistent leukocytosis to 13 and elevated inflammatory markers (ESR 47, CRP 296). CXR without foreign body, fracture. Antibiotics at that time were broadened to Vanco/Zosyn. 09/16: fever curve improving, exam is unchanged per patient (although no pictures of wound in chart). Labs are pending. He continues on IV vancomycin for now. I would consider deescalating antibiotics today/tomorrow. 09/17- per patient it is worse, will obtain CT hand along with ID evaluation 09/18- seen by ID, recommended hand CT and to continue vancomycin, and possible trial of cephalexin PO (patient has adamantly refused this). At this time MRSA nares negative, if no abscess seen on hand CT will transition to PO doxycycline in the next 1-2 days as patient refuses trial of cephalexin as has allergy, but patient is not clear what this allergy is. CT hand done: Dorsal subcutaneous soft tissue swelling with expansion and mild peripheral enhancement of the tendons at the third and fourth extensor compartments which raises concern for septic tenosynovitis. MRI recommended for further evaluation. MRI right hand: 1. No findings suspicious for osteomyelitis. 2. Diffuse edema and enhancement within the dorsal saphenous tissues of the hand extending to the fingers with findings suspicious for cellulitis and tenosynovitis of the extensor tendons. -Patient's hand improves, MRI showed showed right hand tenosynovitis of the extensor tendons, seen by ID treated with IV vancomycin and transitioned to PO doxycycline with goal 10-14 day course (last day earliest to end is 09/25/22) Encounters * This document contains information received from the source organization and may not represent a complete record from that organization. Date Type Department Care Team Description 04/23/[address] [phone] Won Lino PA Urinary symptom or sign [address] [phone] Leelee Huerta LPN Panic disorder [address] [phone] Leelee Huerta LPN Med Refill 04/19/[address] [phone] Won Lino PA 04/06/[address] [phone] Won Lino PA Schizoaffective disorder, bipolar type (CMS/HCC) 04/06/[address] [phone] Won Lino PA Schizoaffective disorder, bipolar type (CMS/HCC); Transgender man on hormone therapy 04/06/[address] [phone] Won Lino PA 04/06/[address] [phone] Won Lino PA Transgender man on hormone therapy 04/01/[address] [phone] Won Lino PA Transgender man on hormone therapy; Schizoaffective disorder, bipolar type (CMS/HCC) 03/23/[address] [phone] Miesha Calvert LPN 03/04/2025 3:40 PM EDT Office Visit [address] [phone] Won Lino PA Pulmonary nodules (Primary Dx); Chronic 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; Chronic pain of left hand; Transgender man on hormone therapy; Urinary symptom or sign 03/03/[address] [phone] Won Lino PA 03/03/[address] [phone] Won Lino PA 03/02/[address] [phone] Won Lino PA 03/02/[address] [phone] Vero Alvarado NP Schizoaffective disorder, bipolar type (CMS/HCC) 03/02/[address] [phone] Shaun Christensen AGNP Transgender man on hormone therapy 03/02/[address] [phone] Won Lino PA Moderate persistent asthma without complication 02/01/[address] [phone] Won Lino PA Med Refill 02/01/[address] [phone] Won Lino PA 02/01/[address] [phone] Won Lino PA Moderate persistent asthma without complication 01/31/[address] [phone] Won Lino PA 01/29/[address] [phone] Vero Alvarado NP Schizoaffective disorder, bipolar type (CMS/HCC) 01/27/[address] [phone] Won Lino PA Transgender man on hormone therapy; Schizoaffective disorder, bipolar type (CMS/HCC); Toxic polyneuropathy (CMS/HCC) from Last 3 Months Family History Medical History Relation Name Comments COPD Brother 1 No Vision loss Brother 1 No COPD Brother 2 Me Stroke Brother 2 Me Heart disease Brother 3 [place] Asthma Father No Cancer Father No Hypertension Father No Early natural Father's Sister Coleen blaine Alcohol abuse Mother Absolutely not Arthritis Mother Absolutely not defects Mother Absolutely not COPD Mother Absolutely not Diabetes Mother Absolutely not Drug abuse Mother Absolutely not Hearing loss Mother Absolutely not Heart disease Mother Absolutely not Hyperlipidemia Mother Absolutely not Intellectual Disability Mother Absolutely not Kidney disease Mother Absolutely not Mental illness Mother Absolutely not Miscarriages / Stillbirths Mother Absolutely not Vision loss Mother Absolutely not COPD Paternal Grandmother Not your biz Depression Paternal Grandmother Not your biz Drug abuse Paternal Grandmother Not your biz COPD Sister No Stroke Sister No Vision loss Sister No COPD Son 1 None Heart disease Son 1 None Learning disabilities Son 2 Me Relation Name Status Comments Brother 1 No Alive Brother 2 Me Alive Brother 3 [place] Alive Father No Alive Father's Sister Coleen valladares Alive Mother Absolutely not Alive Paternal Grandmother Not your biz Alive Sister No Alive Son 1 None Alive Son 2 Me Alive Social History Tobacco Use Types Packs/Day Years Used Date Smoking Tobacco: Every Day Cigarettes 0.5 40 Smokeless Tobacco: Never Tobacco Cessation:Ready to Q uit: Not Asked; Counseling Given: Yes Alcohol Use Standard Drinks/Week Comments Never 0 [...] the past 12 months, has t he [employer], [employer], oil or water [employer] threatened to shut off services in your [...] Orientation Asexual 12/29/2024 10 :22 AM EDT Last Filed Vital Signs Vital Sign Reading Time Taken Comments Blood Pressure 125/84 03/04/2025 4:02 PM EDT Pulse 106 03/04/2025 4:02 PM EDT Temperature 36.3 C (97.3 F) 12/06/2024 1:24 PM EDT Respiratory Rate - - Oxygen Saturation 97% 03/04/2025 4:02 PM EDT Inhaled Oxygen Concentration - - Weight 67.1 kg (148 lb) 12/06/2024 1:24 PM EDT Height 160 cm (5' 3 ) 03/03/2023 10:14 AM EDT Body Mass Index 26.22 03/03/2023 10:14 AM EDT Plan of Treatment Health Maintenance Due Date Last Done Comments Alcohol/Substance Use Screening 1983 Hepatitis B Vaccines (1 of 3 - 19+ 3-dose series) 1990 Pneumococcal Vaccine: 50+ Years (1 of 2 - PCV) 1990 Lung Cancer Screening 2021 Zoster Vaccines (1 of 2) 2021 Depression Screening 07/25/2024 07/25/2023, 07/25/2023 SDOH Screening 06/28/2025 06/28/2024 Disability Screening 08/09/2025 08/09/2024 Tobacco Screening 03/04/2026 03/04/2025 DTaP/Tdap/Td Vaccines (2 - T d or Tdap) 06/17/2027 06/17/2017 Lipid Panel 05/12/2029 05/12/2024 RSV Patients and Patients Aged 60 years or older (1 - 1-dose 75+ series) 2046 HIV Screening Completed 08/20/2024, 10/19/2021 Hepatitis C Screening Completed 08/20/2024 , 10/19/2021 COVID-19 Vaccine Discontinued HIB Vaccines Aged Out No longer eligi ble based on patient's age to complete this topic HPV Vaccines Aged Out No longer eligi ble based on patient's age to complete this topic Hepatitis A Vaccines Aged Out No long er eligible based on patient's age to complete this topic IPV Vaccines Aged Out No longer eligi ble based on patient's age to complete this topic Influenza Vaccine Discontinued Meningococcal B Vaccine Aged Out No l onger eligible based on patient's age to complete this topic Meningococcal Vaccine Aged Out No silvestre bernardino eligible based on patient's age to complete this topic RSV under 20 months Aged Out No longe r eligible based on patient's age to complete this topic Rotavirus Vaccines Aged Out No longer eligible based on patient's age to complete this topic Procedures Procedure Name Priority Date/Time Associated Diagnosis Comments POCT URINALYSIS DIPSTICK Routine 03/04/2025 4:37 PM EDT Urinary symptom or sign HEPATITIS C AB W/REFL TO HCV RNA, QN, PCR Routine 08/20/2024 3:29 PM EST Encntr screen for infections w sexl mode of transmiss HIV 1/2 ANTIGEN/ANTIBODY, FOURTH GENERATION W/RFL Routine 08/20/2024 3:29 PM EST Encntr screen for infections w sexl mode of transmiss LIPID PANEL WITH REFLEX TO DIRECT LDL Routine 05/12/2024 11:44 AM EDT Transgender man on hormone therapy from Last 3 Months or Most Recently Relevant to Health Maintenance Results * POCT urinalysis dipstick manually resulted (03/04/2025 4:37 PM EDT) Color, UA Yellow Clarity, UA Clear Glucose, UA Negative Bilirubin, UA Negative Ketones, UA Negative Spec Grav, UA 1.025 Blood, UA Negative Negative, None Detected pH, UA 6.0 Protein, UA Negative Urobilinogen, UA 0.2 Leukocytes, UA Negative Negative, Rare, Trace Nitrite, UA Negative Negative, None Detected Urine 03/04/2025 4:37 PM EDT Won ANDERSON POINT OF CARE TEST ENTER/EDIT OR DERABLES Final Result * Hepatitis C Antibody with Reflex to HCV, RNA, Quantitative, Real-Time PCR (08/20/2024 3:29 PM EST) Hepatitis C Antibody NON-REACT DHARA NON-REACT DHARA [facility] Comment: HCV antibody was non-reactive. There is no laboratory evidence of HCV infection. In most cases, no further action is required. However, if recent HCV exposure is suspected, a test for HCV RNA (test code 93756) is suggested. For additional information please refer to http://education.[employer]/faq/WAO58h7 (This link is being provided for informational/ educational purposes only.) Blood Venous blood specimen / Unknown 08/20/2024 3:29 PM EST 08/20/2024 3:30 PM EST Narrative [facility] - 08/23/2024 3:36 PM EST FASTING:NO AN UPDATE OR CORRECTION HAS BEEN MADE TO NAME FASTING: NO us Won ANDERSON LAB BLOOD ORDERABLES Final Resul t [facility] [address], [place] [address] [facility] [address] [place] [address] * HIV-1/2 Antigen and Antibodies, Fourth Generation, with Reflexes (08/20/2024 3:29 PM EST) HIV Antigen/Antibody, 4th Generation NON-REAC TIVE NON-REAC TIVE [facility] Comment: HIV-1 antigen and HIV-1/HIV-2 antibodies were not detected. There is no laboratory evidence of HIV infection. PLEASE NOTE: This information has been disclosed to you from records whose confidentiality may be protected by state law. If your state requires such protection, then the state law prohibits you from making any further disclosure of the information without the specific written consent of the person to whom it pertains, or as otherwise permitted by law. A general authorization for the release of medical or other information is NOT sufficient for this purpose. For additional information please refer to http://education.[employer]/faq/OZJ505 (This link is being provided for informational/ educational purposes only.) The performance of this assay has not been clinically validated in patients less than 2 years old. Blood Venous blood specimen / Unknown 08/20/2024 3:29 PM EST 08/20/2024 3:30 PM EST Narrative [facility] - 08/23/2024 3:36 PM EST FASTING:NO AN UPDATE OR CORRECTION HAS BEEN MADE TO NAME FASTING: NO Won ANDERSON LAB BLOOD ORDERABLES Final Resul t [facility] [address], [place] [address] [facility] [address] [place] [address] * (ABNORMAL) Lipid Panel with Reflex to Direct LDL (05/12/2024 11:44 AM EDT) Cholesterol, Total 215(H) <200 mg/dL [facility] HDL Cholesterol 46 > OR = 40 mg/dL [employer] [facility] Triglycerides 132 <150 mg/dL [employer] [facility] [place] [facility] LDL Cholesterol 143(H) mg/dL [email or web address] Comment: Reference range: <100 Desirable range <100 mg/dL for primary prevention; <70 mg/dL for patients with CHD or diabetic patients with > or = 2 CHD risk factors. LDL-C is now calculated using the Shelton calculation, which is a validated novel method providing better accuracy than the Friedewald equation in the estimation of LDL-C. Jarvis RIOS et al. KULWINDER. 2013;310(19): 3103-7331 (http://Portfolia.[employer]/faq/XBV351) Chol/HDLC Ratio 4.7 <5.0 (calc) [facility] Non-HDL Cholesterol 169(H) <130 mg/dL [facility] Comment: For patients with diabetes plus 1 major ASCVD risk factor, treating to a non-HDL-C goal of <100 mg/dL (LDL-C of <70 mg/dL) is considered a therapeutic option. Blood 05/12/2024 11:4 4 AM EDT 05/12/2024 11:44 AM EDT Narrative [facility] - 05/16/2024 2:05 PM EDT FASTING:NO AN UPDATE OR CORRECTION HAS BEEN MADE TO NAME FASTING: NO Won ANDERSON LAB BLOOD ORDERABLES Final Resul t [facility] [address], [place] [address] [facility] [address] [place] [address] from Last 3 Months or Most Recently Relevant to Health Maintenance Insurance [email or web address] STANDARD CCA ONE CARE < 65 Care Teams Dialysis Social Worker Relationship Specialty Start Date End Date Won Lino PA [address] [place] [id number] PCP - General Family Medicine 06/17/23 Roya King [address] [place] [address] 02/20/23
--- OUTSIDE RECORDS SUMMARY | 2025-04-27 00:51 | XMS_ITS | Encounter Summary ---
Author Organization [employer] Address [address] [place] [address] 7 [place] [address] Care Team Providers Care Clinical Reviewer Name Role Phone Roya King Unavailable Gloria Carter Unavailable [phone] Won Lino Primary Care Provider Encounter Details Date Type Department Care Team (Late st Contact Info) Description 10/20/2023 Telephone [facility] [address] [phone] Vero Alvarado NP Social History Tobacco Use Types Packs/Day Years [...] encounter Miscellaneous Notes * Telephone Encounter - JENNIFER Rabago - 12/16/2024 1:19 PM EDT Looping in the front office as Behavioral Health is unable to schedule appointments for Vero. * Telephone Encounter - Sergey Llanos - 10/20/2023 11:29 AM EDT Patient is requesting to schedule an appointment with Vero Alvarado, please call to schedule documented in this encounter Plan of Treatment Not on file documented as of this encounter Visit Diagnoses Not on filedocumented in this encounter Care Teams Clinical Reviewer Relationship Specialty Start Date End Date Won Lino PA [address] [place] [address] PCP - General Family Medicine 06/17/23 Roya King [address] [place] [address] 02/20/23 [place], [place] [address] [place] [address] 05/07/23 04/06/24 documented as of this encounter
--- OUTSIDE RECORDS SUMMARY | 2025-04-27 00:51 | XMS_ITS | Encounter Summary ---
Author Organization [employer] Address [address] [place] [address] 7 [place] [address] Care Team Providers Care Sap Solution Manager Consultant Name Role Phone Roya King Unavailable Won Lino Primary Care Provider [phone] Encounter Details Date Type Department Care Team (Late st Contact Info) Description 04/14/2024 Telephone [facility] [address] [place] [address] Won Lino PA [address] [place], [place] [phone] Social History Tobacco Use Types Packs/Day Years [...] encounter Miscellaneous Notes * Telephone Encounter - Stefania Castañeda - 04/14/2024 10:16 AM EDT Requested * Telephone Encounter - Alexandra Meza - 04/14/2024 10:06 AM EDT Prescribing Provider: Medication Name: clonapin Dosage: 2mg 5 Days or More Supply: No Pharmacy: [id number] [place], [place] - [address] [address] [address] [facility] [address] [id number] [place], [place] - [address] [facility] [address] [facility] [address] documented in this encounter Plan of Treatment Not on file documented as of this encounter Visit Diagnoses Not on filedocumented in this encounter Care Teams Sap Solution Manager Consultant Relationship Specialty Start Date End Date Won Lino PA [address] [place] [address] PCP - General Family Medicine 06/17/23 Roya King [address] [place] [address] 02/20/23 documented as of this encounter
--- OUTSIDE RECORDS SUMMARY | 2025-04-27 00:52 | XMS_ITS | Encounter Summary ---
Author Organization [employer] Address [address] [place] [address] 7 [place] [address] Care Team Providers Care Junior Network Engineer Name Role Phone Roya King Unavailable Won Lino Primary Care Provider [phone] Encounter Details Date Type Department Care Team (Late st Contact Info) Description 01/31/[address] [facility] [address] [place] [address] Won Lino PA [address] [place], [place] [phone] Social History Tobacco Use Types Packs/Day Years [...] * Telephone Encounter - Alexandra Meza - 01/31/2025 12:40 PM EDT Calling to remind DL that he needs that time sensitive letter today. Regarding the over the countersupplements he takes for his well being. Please advise status of said letter. [phone] documented in this encounter Plan of Treatment Not on file documented as of this encounter Visit Diagnoses Not on filedocumented in this encounter Care Teams Junior Network Engineer Relationship Specialty Start Date End Date Won Lino PA [address] [place] [address] PCP - General Family Medicine 06/17/23 Roya King [address] [place] [address] 02/20/23 documented as of this encounter
--- OUTSIDE RECORDS SUMMARY | 2025-04-27 00:52 | XMS_ITS | Encounter Summary ---
Author Organization [employer] Address [address] [place] [address] 7 [place] [address] Care Team Providers Care Food Cooking Machine Operator Name Role Phone Roya King Unavailable Won Lino Primary Care Provider [phone] Reason for Visit * Reason Comments Med Refill Encounter Details Date Type Department Care Team (Late st Contact Info) Description 01/02/2025 Refill [facility] [address] [place] [address] Vero Alvarado NP Schizoaffective disorder, bipolar type (CMS/HCC) Social History Tobacco Use Types Packs/Day [...] as of this encounter Visit Diagnoses Diagnosis Schizoaffective disorder, bipolar type (CMS/HCC) Schizoaffective disorder, unspecified condition documented in this encounter Care Teams Food Cooking Machine Operator Relationship Specialty Start Date End Date Won Lino PA [address] [place] [address] PCP - General Family Medicine 06/17/23 Roya King [address] [place] [address] 02/20/23 documented as of this encounter
--- OUTSIDE RECORDS SUMMARY | 2025-04-27 00:52 | XMS_ITS | Encounter Summary ---
Author Organization [facility] Address [address] [place] [address] Phone Care Team Providers Care Community Education Specialist Name Role Phone Connor Haque MD Unavailable Unavailable Won Lino Primary Care Provider [phone] Encounter Details Date Type Department Care Team (Late st Contact Info) Description 04/21/2025 Procedure Pass [facility], Ct Scan - [facility] [address] [place] [address] Social History Tobacco Use Types Packs/Day Years Used Date Smoking Tobacco: Every Day Cigarettes Passive Smoke Exposure: Never Smokeless Tobacco: Never Alcohol Use Standard Drinks/Week Comments Yes 0 (1 standard drink = 0.6 oz pur e alcohol) occasionally Education Answer Date Recorded Are you interested in more education? Not on cheng e 11/29/2022 Are you concerned about learning? Not on file 11/29/2022 No 11/29/2022 No 11/29/2022 Food Answer Date Recorded Within the past 6 months we worried whether our food would run out before we got money to buy more. Unable to assess 025 Within the past 6 months the food we bought just didn't last and we didn't have enough money to get more. Unable to assess 04/21/2025 Residential Stability Answer Date Recor ded What is your housing situation today? Unable to assess 04/21/2025 How many times have you moved in the past 12 fri ths? Unable to assess 04/21/2025 Paying for Meds Answer Date Recorded Do you have trouble paying for medicines? Unable to assess 04/21/2025 Paying Utility Bills Answer Date Record ed Do you have trouble paying y our heating or electricity bill? Unable to assess 04/21/2025 Transportation Answer Date Recorded Has the lack of transportati on kept you from medical appointments or from getting medications? Unable to assess 04/21/2025 Digital Access Answer Date Recorded No 04/21/2025 No 04/21/2025 Do you have reliable internet access at home? Un able to assess 04/21/2025 Do you have a device (e.g., phone, tablet, computer) with a working camera? Unable to assess 04/21/2025 Intimate Partner Violence Answer Date R ecorded Are you denied basic needs s uch as food, clothing, or medical care? No 04/21/2025 In the past 12 months have y ou been in a relationship with a person who hurts, threatens, or tries to control you? No 04/21/2025 Are you denied basic needs s uch as food, clothing, or medical care? No 04/21/2025 In the past 12 months have y ou been in a relationship with a person who hurts, threatens, or tries to control you? No 04/21/2025 Comments No Sex and Gender Information Value Date Recorded Sex Assigned at Female 10/25/2020 9:39 AM EDT Legal Sex Male 10:37 AM EDT Gender Identity Transgender Male 10/25/2020 9:39 AM EDT Sexual Orientation Queer 03/03/2019 8: 17 AM EDT documented as of this encounter Functional Status * Calculated C-SSRS Risk Score (Lifetime/Recent) Answer Date of Assessment Author High Risk 04/21/2025 12:26 PM EDT Latanya Martinez, JIMENEZ * [place] Suicide Severity Rating Scale (Screener/Recent Self-Report) Question Answer Date of Assessment Author 1. Wish to be (Past 1 Month) Yes 025 12:26 PM EDT Latanya Martinez, JIMENEZ 2. Non-Specific Active Suici mirta Thoughts (Past 1 Month) No 04/21/2025 12:26 PM EDT Cecille Martinez, JIMENEZ 6. Suicidal Behavior (Lifetime) Yes 12:26 PM EDT Latanya Martinez, RN 6. Suicidal Behavior (3 Months) Yes 5 12:26 PM EDT Latanya Martinez, JIMENEZ documented as of this encounter Plan of Treatment Not on file documented as of this encounter Visit Diagnoses Not on filedocumented in this encounter Care Teams Community Education Specialist Relationship Specialty Start Date End Date Won Lino PA [address] [place] [address] PCP - General Physician Traffic Manager 03/22/25 Connor Haque MD Internal Medicine 03/01/19 documented as of this encounter Additional Source Comments The information contained in this document represents components of the legal health record. It is not the complete legal health record.[facility]
--- OUTSIDE RECORDS SUMMARY | 2025-04-27 00:52 | XMS_ITS | Encounter Summary ---
Author Organization [facility] Address [address] [place] [address] Phone Care Team Providers Care Supervisor Green End Department Name Role Phone Connor Haque MD Unavailable Unavailable Won Lino Primary Care Provider [phone] Encounter Details Date Type Department Care Team (Late st Contact Info) Description 04/21/2025 Procedure Pass [facility], Ct Scan - [facility] 30 [place] [address] Social History Tobacco Use Types Packs/Day Years [...] 12:26 PM EDT Latanya Martinez, JIMENEZ * [place] Suicide Severity Rating Scale (Screener/Recent Self-Report) Question [...] on filedocumented in this encounter Care Teams Supervisor Green End Department Relationship Specialty Start Date End Date Won Lino PA [address] [place] [address] PCP - General Physician Chief Radiology 03/22/25 Connor Haque MD Internal Medicine 03/01/19 documented as of this encounter Additional Source Comments The information contained in this document represents components of the legal health record. It is not the complete legal health record.[facility]
--- OUTSIDE RECORDS SUMMARY | 2025-04-27 00:52 | XMS_ITS | Encounter Summary ---
Author Organization [facility] Address [address] [facility] [address] [place] [address] Phone Care Team Providers Care Vp Customer Development Name Role Phone Connor Haque MD Unavailable Unavailable Scott Davey NP Primary Care Provide r Won Lino Primary Care Provider [phone] Encounter Details Date Type Department Care Team (Late st Contact Info) Description 09/17/2022 Procedure Pass [facility], Ct Scan - [address] [address] Social History Tobacco Use Types Packs/Day Years Used Date Smoking Tobacco: Every Day Cigarettes Smokeless Tobacco: Never Alcohol Use Standard Drinks/Week Comments Yes 0 (1 standard drink = 0.6 oz pur e alcohol) occasionally Intimate Partner Violence Answer Date R ecorded Are you denied basic needs s uch as food, clothing, or medical care? Patient unable to respond 09/21/2022 In the past 12 months have y ou been in a relationship with a person who hurts, threatens, or tries to control you? Patient unable to respond 09/21/2022 Are you denied basic needs s uch as food, clothing, or medical care? Patient unable to respond 09/21/2022 In the past 12 months have y ou been in a relationship with a person who hurts, threatens, or tries to control you? Patient unable to respond 09/21/2022 Comments No Sex and Gender Information Value [...] 05/11/2019 05/11/2019 09/28/2023 1:24 AM EST CoV-Risk Comment:2 neg covid 09/16/2022 09/16/2022 09/17/2022 6:[address] documented as of this encounter Care Teams Vp Customer Development Relationship Specialty Start Date End Date Scott Davey NP PCP - General 08/05/22 03/21/25 Won Lino PA [address] [place] [address] PCP - General Physician Circulation Clerk 03/22/25 Connor Haque MD Internal Medicine 03/01/19 documented as of this encounter Additional Source Comments The information contained in this document represents components of the legal health record. It is not the complete legal health record.[facility]
--- OUTSIDE RECORDS SUMMARY | 2025-04-27 00:52 | XMS_ITS | Encounter Summary ---
Author Organization [employer] Address [address] [place] [address] [place] [address] Care Team Providers Care Flight Engineer Inspector Name Role Phone Roya King Unavailable Won Lino Primary Care Provider [phone] Reason for Visit * Reason Onset Date Comments Med Refill 03/02/2025 Encounter Details Date Type Department Care Team ([facility] st Contact Info) Description 03/02/2025 Refill [facility] [address] [place] [phone] Won Lino PA [address] [place] [address] Social History Tobacco Use Types Packs/Day Years [...] on filedocumented in this encounter Care Teams Flight Engineer Inspector Relationship Specialty Start Date End Date Won Lino PA [address] [place] [address] PCP - General Family Medicine 06/17/23 Roya King [address] [place] [address] 02/20/23 documented as of this encounter
--- OUTSIDE RECORDS SUMMARY | 2025-04-27 00:52 | XMS_ITS | Clinical Summary ---
Author Organization [facility] Address [address] [place] [address] Care Team Providers Care Belt Tender Name Role Phone Won Lino PA-C Primary Care Provider [phone] Allergies Active Allergy Reactions Criticality Noted Date Comments Carbamazepine Unknown/Patient and Family Unable to Define Medium 02/01/2024 Please re-evaluate again as pt currently unreliable historian Other Unknown/Patient and Family Unable to Define Medium 02/01/2024 States allergic to all opiates; Please re-evaluate again as pt currently unreliable historian Oxcarbazepine Unknown/Patient and Family Unable to Define Medium 02/01/2024 Please re-evaluate again as pt currently unreliable historian Olanzapine Anaphylaxis High 02/01/2024 Per patient he has anaphylaxis w/ this med; Please re-evaluate again as pt currently unreliable historian Medications No known medications Active Problems Problem Noted Date Diagnosed Date Psychosis 02/01/2024 Social History Tobacco Use Types Packs/Day Years Used Date Smoking Tobacco: Never Assessed Comments Unknown Sex and Gender Information Value Date Recorded Sex Assigned at Female 01/15/2024 1:47 AM EDT Legal Sex Male 1:47 AM EDT Gender Identity Transgender Male 02/13/2024 9:25 PM EDT Sexual Orientation Choose not to disclose 2023 12:32 AM EDT Last Filed Vital Signs Vital Sign Reading Time Taken Comments Blood Pressure 136/66 08/06/2024 5:08 PM EST Pulse 70 08/06/2024 5:08 PM EST Temperature 36.7 C (98.1 F) 08/06/2024 5:08 PM EST Respiratory Rate 20 08/06/2024 5:08 PM EST Oxygen Saturation 96% 08/06/2024 5:08 PM EST Inhaled Oxygen Concentration - - Weight 67 kg (147 lb 11.3 oz) 08/06/2024 4:14 PM EST Height - - Body Mass Index - - Plan of Treatment Health Maintenance Due Date Last Done Comments Hepatitis C Virus Screening 1971 HIV Screening 1984 DTaP/Tdap/Td Vaccines (1 - Tdap) 1990 Hepatitis B Vaccines (1 of 3 - 19+ 3-dose series) 04/04 Pneumococcal Vaccines 50+ (1 of 2 - PCV) 1990 Pap Smear (Ages 21-65) 1992 Colonoscopy 2016 Zoster (Shingles) Vaccine (1 of 2) 2021 Influenza Vaccine 03/04/2025 COVID-19 Vaccine ( - 2023- season) 2025 Insurance MEDICAID OUT OF STATE [facility] [place] WHEELER [id number] Care Teams Belt Tender Relationship Specialty Start Date End Date Won Lino PA-C [address] [place] [address] PCP - General 01/15/24
--- OUTSIDE RECORDS SUMMARY | 2025-04-27 00:52 | XMS_ITS | Encounter Summary ---
Author Organization [facility] Address [address] [facility] [address] [place] [address] Phone Care Team Providers Care Financial Coordinator Name Role Phone Unknown, Unknown Primary Care Provider Gaviota Mcmillan CARPENTER SHIP Primary Care Provider [phone] Connor Haque MD Primary Care Provider Unavailab Kemi Gutierrez CHROME WORKER Primary Care Provider [phone] Connor Haque MD Unavailable Unavailable Suad Haque CHROME WORKER Primary Care Provider Scott Davey CHROME WORKER Primary Care Provide r Won Lino Primary Care Provider [phone] Encounter Details Date Type Department Care Team (Late st Contact Info) Description 09/04/2017 Ancillary Orders [facility] [address] [place] [address] x4 Michael Leigh MD [address] [place] [address], [address] [place], [place] [id number] Social History Tobacco Use Types Packs/Day Years Used Date Smoking Tobacco: Every Day Cigarettes Smokeless Tobacco: Never Alcohol Use Standard Drinks/Week Comments No 0 (1 standard drink = 0.6 oz pur e alcohol) Comments No Sex and Gender Information Value [...] documented as of this encounter Care Teams Financial Coordinator Relationship Specialty Start Date End Date Unknown, Unknown, PCP - General 06/16/17 04/14/18 Gaviota Walls FNP [address] [place] [address] [email or web address] PCP - General Family Medicine 04/15/18 04/28/18 Connor Haqeu MD PCP - General Internal Medicine 04/29/18 02/28/19 Kemi Dumont NP PCP - General 03/01/19 12/17/21 Suad Haque NP [address] [place] [address] PCP - General Family Medicine 12/18/21 08/04/22 Scott Davey NP [address] [place] [address] PCP - General 08/05/22 03/21/25 Won Lino PA [address] [place] [address] PCP - General Physician Wood Panel Inspector 03/22/25 Connor Haque MD Internal Medicine 03/01/19 documented as of this encounter Additional Source Comments The information contained in this document represents components of the legal health record. It is not the complete legal health record.[facility]
--- OUTSIDE RECORDS SUMMARY | 2025-04-27 00:52 | XMS_ITS | Encounter Summary ---
Author Organization [employer] Address [address] [place] [address] [place] [address] Care Team Providers Care Stud Master/Mistress Name Role Phone Roya King Unavailable Won Lino Primary Care Provider [phone] Reason for Visit * Reason Onset Date Comments Med Refill 03/03/2025 Encounter Details Date Type Department Care Team ([facility] st Contact Info) Description 03/03/2025 Refill [facility] [address] [place] [id number] Won Lino PA [address] [place] [address] Social History Tobacco Use Types Packs/Day Years [...] Telephone Encounter - [facility] [place] - 03/03/2025 2:41 PM EDT Duplicate documented in this encounter Plan of Treatment Not on file documented as of this encounter Visit Diagnoses Not on filedocumented in this encounter Care Teams Stud Master/Mistress Relationship Specialty Start Date End Date Won Lino PA [address] [place] [address] PCP - General Family Medicine 06/17/23 Roya King [address] [place] [address] 02/20/23 documented as of this encounter
--- OUTSIDE RECORDS SUMMARY | 2025-04-27 00:52 | XMS_ITS | Encounter Summary ---
Author Organization [employer] Address [address] [place] [address] 7 [place] [address] Care Team Providers Care Service Station Operator Name Role Phone Roya King Unavailable Won Lino Primary Care Provider [phone] Reason for Visit * Reason Onset Date Comments Med Refill 04/06/2025 Encounter Details Date Type Department Care Team ([facility] st Contact Info) Description 04/06/2025 Refill [facility] [address] [place] [phone] Won Lino PA [address] [place] [address] Social History Tobacco Use Types Packs/Day Years [...] Telephone Encounter - [facility] [place] - 04/06/2025 11:23 AM EDT Sent in yesterday documented in this encounter Plan of Treatment Not on file documented as of this encounter Visit Diagnoses Not on filedocumented in this encounter Care Teams Service Station Operator Relationship Specialty Start Date End Date Won Lino PA [address] [place] [address] PCP - General Family Medicine 06/17/23 Roya King [address] [place] [address] 02/20/23 documented as of this encounter
--- OUTSIDE RECORDS SUMMARY | 2025-04-27 00:52 | XMS_ITS | Encounter Summary ---
Author Organization [employer] Address [address] [place] [address] [place] [address] Care Team Providers Care Stunt Man Name Role Phone Suad Haque Unavailable Unavailable Mary Vega MD Primary Care Provider [phone] Suad Haque Primary Care Provider Unavailab Roya Owens Unavailable Gloria Carter Unavailable [phone] Obey Sánchez Unassigned Primary Care Provider U Won Santana Primary Care Provider Encounter Details Date Type Department Care Team (Late st Contact Info) Description 09/13/2022 Orders Only [facility] MEDICAL [address] [place] [address] Provider, MD Inge Social History Tobacco Use Types Packs/Day Years [...] on file documented as of this encounter Procedures Procedure Name Priority Date/Time Associated Diagnosis Comments CBC AND DIFFERENTIAL - WAM A ND NON-WAM Routine 09/12/2022 ALCOHOL, ETHYL, BLOOD Routine 09/12/2022 ACETAMINOPHEN LEVEL Routine 09/12/2022 SALICYLATE Routine 09/12/2022 HEPATIC FUNCTION PANEL Routine 09/12/2022 BASIC METABOLIC PANEL Routine 09/12/2022 documented in this encounter Results * Hepatic Function Panel (09/12/2022) Blood Venous blood specimen / Unknown Result [facility] Provider MD LAB BLOOD ORDERABLES Annika l Result * Basic Metabolic Panel (09/12/2022) Blood Venous blood specimen / Unknown Result [facility] LAB BLOOD ORDERABLES Annika l Result * CBC and differential (09/12/2022) Blood Venous blood specimen / Unknown Result [facility] LAB BLOOD ORDERABLES Annika l Result * Salicylate (09/12/2022) Blood Venous blood specimen / Unknown Result [facility] LAB BLOOD ORDERABLES Annika l Result * Alcohol, Ethyl (09/12/2022) Blood Venous blood specimen / Unknown Result [facility] LAB BLOOD ORDERABLES Annika l Result * Acetaminophen level (09/12/2022) Blood Venous blood specimen / Unknown Result [facility] LAB BLOOD ORDERABLES Annika l Result documented in this encounter Visit Diagnoses Not on filedocumented in this encounter Care Teams Stunt Man Relationship Specialty Start Date End Date Mary Vega MD [address] [place] [address] PCP - General Family Medicine 09/09/22 09/23/22 Suad Haque FNP PCP - General Family Medicine 09/24/22 06/09/23 Obey Sánchez Unassigned PCP - General Family Medicine 06/10/23 3 Won Lino PA [address] [place] [address] PCP - General Family Medicine 06/17/23 Suad Haque FNP Family Medicine 05/31/22 06/16/23 Roya King [address] [place] [address] 02/20/23 Gloria Carter [address] [place] [address] 05/07/23 04/06/24 documented as of this encounter
--- OUTSIDE RECORDS SUMMARY | 2025-04-27 00:52 | XMS_ITS | Encounter Summary ---
Author Organization [facility] Address [address] [facility] [address] [place] [address] Phone Care Team Providers Care Machinist Outside Name Role Phone Connor Haque MD Unavailable Unavailable Scott Davey NP Primary Care Provide r Won Lino Primary Care Provider [phone] Encounter Details Date Type Department Care Team (Latest Contact Info) Description 03/18/2025 Transcribe Orders Virtual Department [address] [place] [address] Won Lino PA [address] [place] [address] Pulmonary nodules (Primary Dx) Social History Tobacco Use Types Packs/Day Years [...] on file 11/29/2022 No 11/29/2022 No 11/29/2022 Digital Access Answer Date Recorded No 12/28/2022 No 12/28/2022 Reliable internet access at home? Not on file 12/28/2022 Device with a working camera? Not on file Intimate Partner Violence Answer Date R ecorded [...] as of this encounter Visit Diagnoses Diagnosis Pulmonary nodules- Primary Other diseases of lung, not elsewhere classified documented in this encounter Care Teams Machinist Outside Relationship Specialty Start Date End Date Scott Davey NP PCP - General 08/05/22 03/21/25 Won Lino PA [address] [place] [address] PCP - General Physician Bologna Lacer 03/22/25 Connor Haque MD Internal Medicine 03/01/19 documented as of this encounter Additional Source Comments The information contained in this document represents components of the legal health record. It is not the complete legal health record.[facility]
--- OUTSIDE RECORDS SUMMARY | 2025-04-27 00:52 | XMS_ITS | Encounter Summary ---
Author Organization [employer] Address [address] [place] [address] 7 [place] [address] Care Team Providers Care Furnace Mechanic Helper Name Role Phone Roya Kign Unavailable Won Lino Primary Care Provider [phone] Reason for Visit * Reason Onset Date Comments Med Refill 02/01/2025 Encounter Details Date Type Department Care Team ([facility] st Contact Info) Description 02/01/2025 Refill [facility] [address] [place] [phone] Won Lino PA [address] [place] [address] Social History Tobacco Use Types Packs/Day Years [...] on filedocumented in this encounter Care Teams Furnace Mechanic Helper Relationship Specialty Start Date End Date Won Lino PA [address] [place] [address] PCP - General Family Medicine 06/17/23 Roya King [address] [place] [address] 02/20/23 documented as of this encounter
--- OUTSIDE RECORDS SUMMARY | 2025-04-27 00:52 | XMS_ITS | Encounter Summary ---
Author Organization [facility] Address [address] [facility] [address] [place] [address] Phone Care Team Providers Care Design Draftsman Name Role Phone Unknown, Unknown Primary Care Provider Gaviota Mcmillan POCKET CREASER Primary Care Provider [phone] Connor Haque MD Primary Care Provider Unavailab Kemi Gutierrez FINAL CANOE INSPECTOR Primary Care Provider [phone] Connor Haque MD Unavailable Unavailable Suad Haque FINAL CANOE INSPECTOR Primary Care Provider Scott Davey FINAL CANOE INSPECTOR Primary Care Provide r Won Lino Primary Care Provider [phone] Encounter Details Date Type Department Care Team (Late st Contact Info) Description 09/04/2017 Ancillary Orders Virtual Department [address] [place] [address] Michael Leigh MD [address] [place] [address], [address] [place] [address] [email or web address] Vision loss; Transient cerebral ischemia, unspecified type; Seizure Social History Tobacco Use Types Packs/Day Years [...] as of this encounter Visit Diagnoses Diagnosis Vision loss Unspecified visual loss Transient cerebral ischemia, unspecified type Seizure Other convulsions documented in this encounter Additional Health Concerns [...] documented as of this encounter Care Teams Design Draftsman Relationship Specialty Start Date End Date Unknown, Unknown, PCP - General 06/16/17 04/14/18 Gaviota Walls FNP [address] [place] [address] [email or web address] PCP - General Family Medicine 04/15/18 04/28/18 Connor Haque MD PCP - General Internal Medicine 04/29/18 02/28/19 Kemi Dumont NP PCP - General 03/01/19 12/17/21 Suad Haque NP [address] [place] [address] PCP - General Family Medicine 12/18/21 08/04/22 [place] [address] PCP - General 08/05/22 03/21/25 Won Lino PA [address] [place] [address] PCP - General Physician Sterilizer Machine Operator 03/22/25 Connor Haque MD Internal Medicine 03/01/19 documented as of this encounter Additional Source Comments The information contained in this document represents components of the legal health record. It is not the complete legal health record.[facility]
--- OUTSIDE RECORDS SUMMARY | 2025-04-27 00:52 | XMS_ITS | Encounter Summary ---
Author Organization [facility] Address [address] [facility] [address] [place] [address] Phone Care Team Providers Care Sanitary Engineering Teacher Name Role Phone Connor Haque MD Unavailable Unavailable Scott Davey NP Primary Care Provide r Won Lino Primary Care Provider [phone] Encounter Details Date Type Department Care Team (Late st Contact Info) Description 09/18/2022 Procedure Pass [facility], [address] [address] Social History Tobacco Use Types Packs/Day Years [...] Score (Lifetime/Recent) Answer Date of Assessment Author No Risk Indicated 09/21/2022 11:08 AM Genaro Bautista RN * [place] Suicide Severity Rating Scale (Screener/Recent Self-Report) Question Answer Date of Assessment Author 1. Wish to be (Past 1 Month) No 09/21/2022 11:08 AM Genaro Bautista RN 2. Non-Specific Active Suicidal Thoughts (Past 1 Month) No 09/21/2022 11:08 AM Genaro Bautista RN 6. Suicidal Behavior (Lifetime) No 09/21/2022 11:08 AM Genaro Bautista RN 6. 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 It is not the complete legal health record.[facility]
--- OUTSIDE RECORDS SUMMARY | 2025-04-27 00:52 | XMS_ITS | Encounter Summary ---
Author Organization [employer] Address [address] [place] [address] 7 [place] [address] Care Team Providers Care Nurse Emergency Name Role Phone Roya King Unavailable Won Lino Primary Care Provider [phone] Reason for Visit * Reason Comments Med Refill Encounter Details Date Type Department Care Team (Late st Contact Info) Description 03/02/[address] [facility] [address] [place] [address] Vero Alvarado NP Schizoaffective disorder, bipolar type [...] encounter Miscellaneous Notes * Telephone Encounter - Pilar Gardner RN - 03/02/2025 3:44 PM EDT Duplicate refill request * Telephone Encounter - Pilar Gardner RN - 03/02/2025 3:43 PM EDT Duplicate request. * Telephone Encounter - Karo Sanchez - 03/02/2025 3:23 PM EDT PCP: JUSTIN Ortiz Last in-person office visit: 12/06/2024 JUSTIN Ortiz Lab Results Component Value Date BUN 16 05/12/2024 CREATININE 0.85 05/12/2024 K 4.3 05/12/2024 Assessment: [] Protocol passed [] Lab due [] Appointment due Plan: [] Please refill for 30 days [] Lab [] BMP [] TSH [] A1C [] Appointment due: Future Appointments Date Time Provider Department Center 03/04/2025 3:40 PM JUSTIN Ortiz [facility] Comments: documented in this encounter Plan of Treatment Not on file documented as of this encounter Visit Diagnoses Diagnosis Schizoaffective disorder, bipolar type (CMS/HCC) Schizoaffective disorder, unspecified condition documented in this encounter Care Teams Nurse Emergency Relationship Specialty Start Date End Date Won Lino PA [address] [place] [address] PCP - General Family Medicine 06/17/23 Roya King [address] [place] [address] 02/20/23 documented as of this encounter
--- OUTSIDE RECORDS SUMMARY | 2025-04-27 00:52 | XMS_ITS | Encounter Summary ---
Author Organization [employer] Address [address] [place] [address] 7 [place] [address] Care Team Providers Care Field Nurse Name Role Phone Roya King Unavailable Won Lino Primary Care Provider [phone] Encounter Details Date Type Department Care Team (Late st Contact Info) Description 12/06/2024 Telephone [facility] [address] [place] [address] Won Lino PA [address] [place], [place] [phone] Social History Tobacco Use Types Packs/Day Years [...] encounter Miscellaneous Notes * Telephone Encounter - Abbie Dyer - 12/06/2024 8:52 AM EDT Call back number Patient is scheduled for today at 1.20 with DL as he stated that he is only in [place] this week and needed to see AC or DL this week. Patient informed he has an appt with AC on the . Patient stated the appt with DL today is to discuss ongoing hand/arm and shoulder pain on the left side. Patient chose not to elaborate. Please advise if appt is scheduled appropriately documented in this encounter Plan of Treatment Not on file documented as of this encounter Visit Diagnoses Not on filedocumented in this encounter Care Teams Field Nurse Relationship Specialty Start Date End Date Won Lino PA [address] [place] [address] PCP - General Family Medicine 06/17/23 Roya King [address] [place] [address] 02/20/23 documented as of this encounter
--- OUTSIDE RECORDS SUMMARY | 2025-04-27 00:52 | XMS_ITS | Clinical Summary ---
Author Organization [facility] Address [address] [place] [id number] Phone Care Team Providers Care Terrazzo Polisher Name Role Phone Connor Haque MD Unavailable Unavailable Won Lino Primary Care Provider [phone] Allergies Active Allergy Reactions Criticality Noted Date Comments Cephalexin Unknown Medium 01/04/2018 Clozapine 03/01/2019 Codeine 03/01/2019 Declines this is an allergy Haloperidol Lactate 03/01/2019 Haloperidol 06/22/2017 Kiwi 03/01/2019 Kiwi (Actinidia Chinensis) 7 Latex 03/01/2019 Latex, Natural Rubber 06/04/2017 Morphine 03/01/2019 Declines this is an allergy Paroxetine Hcl 03/01/2019 Fluoxetine 03/01/2019 Midazolam 03/01/2019 Bupropion Hcl 03/01/2019 Sertraline 03/01/2019 Medications * This document contains information received from the source organization and may not represent a complete record from that organization. ipratropium-albut Rebel (COMBIVENT RESPIMAT) 20-100 mcg/actuation MistIndications:c hronic obstructive pulmonary disease with bronchospasms Inhale 1-2 puffs into the lungs 2 (two) times a day as needed. Active testosterone cypionate (DEPO-TESTOTERONE ) 200 mg/mL injection INJECT 1 ML INTRAMUSCULARLY WEEKLY 07/18/20 22 Active clonazePAM (KLONOPIN) 1 MG disintegrating tablet Take 1 tablet (1 mg total) by mouth 2 (two) times a day as needed for anxiety. 04/24/20 25 Active gabapentin (NEURONTIN) 400 MG capsule Take 2 capsules (800 mg total) by mouth 3 (three) times a day. 04/24/20 25 Active thiamine (VITAMIN B-1) 100 mg Tab tablet Take 1 tablet (100 mg total) by mouth nightly at bedtime. 04/24/20 25 Active SUMAtriptan (IMITREX) 25 MG tablet Take 50 mg by mouth every 2 (two) hours as needed for migraine. 2024 Disconti nued(Sto p Taking at Discharg e) ARIPiprazole (ABILIFY) 30 MG tablet Take 1 tablet (30 mg total) by mouth daily. 15 tablet 09/25/19 23 2024 Disconti nued(Sto p Taking at Discharg e) gabapentin (NEURONTIN) 400 MG capsule Take 1 capsule (400 mg total) by mouth 3 (three) times a day. 45 capsule 09/24/19 23 2024 Disconti nued(Sto p Taking at Discharg e) levETIRAcetam (KEPPRA) 500 MG tablet Take 1 tablet (500 mg total) by mouth 2 (two) times a day. 30 tablet 09/24/19 23 2024 Disconti nued(Sto p Taking at Discharg e) nicotine (NICODERM CQ) 21 mg/[address] 1 patch onto the skin daily. Apply to a clean, dry, hairless site on the upper arm or hip. 28 patch 09/24/19 23 2024 Disconti nued(Sto p Taking at Discharg e) nicotine polacrilex (NICORETTE) [address] 1 each (2 mg total) inside cheek every 2 (two) hours as needed for smoking cessation. 100 each 09/24/19 23 2024 Disconti nued(Sto p Taking at Discharg e) clonazePAM (KLONOPIN) 2 MG tablet 05/02/20 23 2024 Disconti nued(Sto p Taking at Discharg e) methylphenidate HCl 54 MG ER tablet TAKE 1 TABLET (54 MG) BY MOUTH IN THE MORNING FOR 28 DAYS. DO NOT CRUSH, CHEW, OR SPLIT. 04/18/20 23 2024 Disconti nued(Sto p Taking at Discharg e) diazePAM (VALIUM) 5 MG tabletIndications :[facility] Take 2.5 mg by mouth daily. Indications: [facility] 2024 Disconti nued(Sto p Taking at Discharg e) Active Problems Problem Noted Date Diagnosed Date Psychosis 04/21/2025 Schizoaffective disorder 09/21/2022 Cellulitis of hand 09/15/2022 Assessment & Plan (09/20/2022 2:15 PM EST): Patient reported spider bite he noticed on [...] (last day earliest to end is 09/25/22) Mental health problem 09/13/2022 Assessment & Plan (09/20/2022 2:17 PM EST): Patient is here on a section 12a. Psychiatry consulted and following. - continue medications per psychiatry recs - continue 1:1 -per psychiatry abilify increased to 30 mg daily Patient is medically clear and is awaiting inpatient psych bed. Intractable nausea and vomiting 05/13/2019 Nausea & vomiting 05/11/2019 Assessment & Plan (05/12/2019 5:31 PM EDT): Patient was initially hospitalized 05/09- where he [...] 05/07 polymicrobial. Culture from 05/11 now demonstrating [id number] colonies E. coli. Await sensitivities Acute anxiety 05/11/2019 Ileus 05/10/2019 Assessment & Plan (05/10/2019 10:49 AM EDT): Question of ileus and/or enterocolitis on imaging --Will monitor clinically. He declined exam this morning, though describes diffuse abdominal pain which could correlate with these findings. He could have ileus secondary to ureteral lithiasis. He is not having significant diarrhea Kidney stone 05/09/2019 Assessment & Plan (05/10/2019 10:46 AM EDT): Presented with abdominal pain. CT imaging showed left ureteral stones and question of enterocolitis or ileus. Resolved leukocytosis overnight. He has been afebrile. --To OR today for cystoscopy and stent placement --N.p.o., IV fluids, PRN analgesics --IV ceftriaxone, likely can DC soon. UA from 05/07 showed TNTC WBC though culture demonstrated only mixed piter. UA 05/09 without pyuria Seizure 05/09/2019 Assessment & Plan (05/12/2019 5:31 PM EDT): Continue Keppra per home regimen Assessment & Plan (05/10/2019 10:47 AM EDT): Continue Keppra Bipolar disorder with severe depression 07/16/20 17 Assessment & Plan (05/10/2019 10:47 AM EDT): Continue usual medications including Abilify, clonazepam, and gabapentin Asthma Assessment & Plan (09/15/2022 6:43 PM EST): Continue as needed Combivent Respimat Resolved Problems Problem Noted Date Diagnosed Date Resolved Date Bipolar affective disorder, depressed in partial remission 06/20/2017 07/16/2017 Bipolar I disorder, current episode depressed 06/18/20 17 07/16/2017 Encounters * This document contains information received from the source organization and may not represent a complete record from that organization. Date Type Department Care Team Description 04/21/2025 Procedure Pass [facility], Ct Scan [address] [address] 04/21/2025 Procedure Pass [place], Ct Scan [address] [address] 03/18/2025 Transcribe Orders Virtual Department [address] [place] [id number] Won Lino PA Pulmonary nodules (Primary Dx) from Last 3 Months Immunizations Immunization Administration Dates Next Due INFLUENZA, SPLIT VIRUS, TRIVALENT PF 04/24/2025( Deferred: Patient Refused) Tdap 06/17/2017 Family History Relation Status Comments Father Alive Mother Alive Sister Alive Social History Tobacco Use Types Packs/Day Years Used Date Smoking Tobacco: Former Cigarettes 0.3 1.7 S tarted: 2023 Passive Smoke Exposure: Never Smokeless Tobacco: Never Tobacco Cessation:Counseling Given: Not Answered Alcohol Use Standard Drinks/Week Comments Yes 0 [...] you moved in the past 12 fri th? Unable to assess 04/21/2025 Paying for Meds [...] Orientation Queer 03/03/2019 8: 17 AM EDT Last Filed Vital Signs Vital Sign Reading Time Taken Comments Blood Pressure 123/71 04/23/2025 5:20 PM EDT Pulse 88 04/23/2025 5:20 PM EDT Temperature 36.3 C (97.4 F) 04/23/2025 5:20 PM EDT Respiratory Rate 17 04/23/2025 5:20 PM EDT Oxygen Saturation 97% 04/23/2025 5:20 PM EDT Inhaled Oxygen Concentration - - Weight 68 kg (150 lb) 04/21/2025 12:00 PM EDT Height 160 cm (5' 3 ) 04/22/2025 5:04 PM EDT Body Mass Index 26.57 04/21/2025 12:00 PM EDT Plan of Treatment Health Maintenance Due Date Last Done Comments DEPRESSION SCREENING 1983 SMOKING Hx and SMOKELESS TOBACCO SCREENING 1984 HEPATITIS C SCREENING 1989 HIV ONE-TIME SCREENING (18-6 5 YEARS) 1989 PNEUMOCOCCAL VACCINES (50+ years) (1 of 2 - PCV) 1990 COLOGUARD 2016 COLONOSCOPY 2016 COLORECTAL CANCER SCREENING 2016 FIT TEST 2016 FOBT 2016 SIGMOIDOSCOPY 2016 VIRTUAL COLONOSCOPY 2016 ZOSTER VACCINES (1 of 2) 2021 INFLUENZA VACCINE (#1) 2025 COVID-19 VACCINE (3 - 2024-2 6 season) 2025 05/02/2021, 03/03/2021 Adult Td,Tdap Booster 06/17/2027 06/17/2017 SCREENING FOR DIABETES 04/23/2028 , 04/21/2025 LIPID PANEL 04/23/2030 04/23/2025, 06/20/2017 HEPATITIS A VACCINES Aged Out No long er eligible based on patient's age to complete this topic HIB VACCINES Aged Out No longer eligi ble based on patient's age to complete this topic MENINGOCOCCAL VACCINES (ACWY) Aged Out No longer eligible based on patient's age to complete this topic MENINGOCOCCAL VACCINES (B) Aged Out N o longer eligible based on patient's age to complete this topic Medical Devices Implanted Type Area Network Systems Integrator Device Identifier Shelf Expiration Date Model / Serial / Lot Loop Polaris [id number] Stent Ureteral Standard Shaft/Straight Tip - [id number] Implanted:Qty: 1 on 05/10/2019 by Erwin Blanc MD at [facility] Left: Ureter [employer] In [place] MARYLOU 12/20/2021 [id number] / [id number] / [id number] Procedures Procedure Name Priority Date/Time Associated Diagnosis Comments 25-OH VITAMIN D Routine 04/23/2025 7:40 AM EDT HEMOGLOBIN A1C Routine 04/23/2025 7:40 AM EDT LIPID PANEL Routine 04/23/2025 7:40 AM EDT FOLATE Routine 04/23/2025 7:40 AM EDT TSH WITH REFLEX Routine 04/23/2025 7:40 AM EDT VITAMIN B12 Routine 04/23/2025 7:40 AM EDT XR PELVIS 1-2 VIEW Routine 04/21/2025 2: 43 PM EDT XR HUMERUS (LEFT) Routine 04/21/2025 2:4 3 PM EDT XR ELBOW 3 OR MORE VIEWS (LEFT) Routine 04/21/2025 2:43 PM EDT ETHANOL, BLOOD STAT 04/21/2025 1:57 PM EDT ACETAMINOPHEN LEVEL STAT 04/21/2025 1 :57 PM EDT SALICYLATES STAT 04/21/2025 1:57 PM EDT LFTS (HEPATIC PANEL) STAT 04/21/2025 1:57 PM EDT BASIC METABOLIC PANEL STAT 04/21/2025 1:57 PM EDT CBC AND DIFFERENTIAL STAT 04/21/2025 1:[address] CERVICAL SPINE WITHOUT CONTRAST Routine 04/21/2025 12:[address] HEAD WITHOUT CONTRAST Routine 04/21/2025 12:12 PM EDT from Last 3 Months Results * TSH with reflex (04/23/2025 7:40 AM EDT) Pathologist [facility] TSH 2.80 0.27 - 4.20 uIU/mL [facility] Blood 04/23/2025 7:40 AM EDT 04/23/2025 8:01 AM EDT Kun Gross PMHNP-BC LAB BLOOD ORDERABLES Annika l Result Performing Organization Address City/[facility]/ZIP Co de Phone Number [address] [address] * (ABNORMAL) 25-OH vitamin D (04/23/2025 7:40 AM EDT) 25 OH VIT D (TOTAL) 98(H) 30 - 60 ng/mL [facility] Blood 04/23/2025 7:40 AM EDT 04/23/2025 8:01 AM EDT Kun Gross PMHNP-BC LAB BLOOD ORDERABLES Annika l Result Performing Organization Address City/[facility]/ZIP Co de Phone Number [address] [address] * Hemoglobin A1c (04/23/2025 7:40 AM EDT) HEMOGLOBIN A1C 5.2 4.3 - 5.8 % [facility] Blood 04/23/2025 7:40 AM EDT 04/23/2025 8:01 AM EDT Kun Moscoso Renato PMHNP- LAB BLOOD ORDERABLES Annika l Result Performing Organization Address City/[facility]/ZIP Co de Phone Number [address] [address] * (ABNORMAL) Folate (04/23/2025 7:40 AM EDT) Pathologist [facility] FOLIC ACID >20.0(H) 4.2 - 19.9 ng/mL [facility] Blood 04/23/2025 7:40 AM EDT 04/23/2025 8:01 AM EDT Kun Gross [facility]- LAB BLOOD ORDERABLES Annika l Result Performing Organization Address [facility] Co de Phone Number [address] [address] * (ABNORMAL) Vitamin B12 (04/23/2025 7:40 AM EDT) VITAMIN B12 1,675(H) 232 - 1,245 pg/mL [facility] Blood 04/23/2025 7:40 AM EDT 04/23/2025 8:01 AM EDT [facility] Gross [facility]LOOD ORDERABLES Annika l Result Performing Organization Address [facility] Co de Phone Number [address] [address] * (ABNORMAL) Lipid panel (04/23/2025 7:40 AM EDT) HDL 46 mg/dL [facility] Comment: Interpretation <40 mg/dL: Low HDL cholesterol (major risk factor for CHD) Greater than or equal to 60 mg/dL: High HDL cholesterol ( negative risk factor for CHD) HDL - cholesterol is affected by a number of factors, e.g. smoking, excerise, hormones, sex and age. CHOLESTEROL 277(H) 0 - 240 mg/dL [facility] TRIGLYCERIDES 111 30 - 160 mg/dL [facility] LDL 209(H) 50 - 129 mg/dL [facility] Comment: LDL levels in terms of risk for coronary heart disease: <100 mg/dL: Optimal 100-129 mg/dL: Near or above optimal 130-159 mg/dL: Borderline high 160-189 mg/dL: High >190 mg/dL: Very High CARDIAC RISK RATIO 6.0(H) 3.4 - 5.0 C [facility] Blood 04/23/2025 7:40 AM EDT 04/23/2025 8:01 AM EDT us Kun Gross PMP- LAB BLOOD ORDERABLES Annika kenney Result Performing Organization Address City/State/[facility] Co de Phone Number [address] [address] * XR PELVIS 1-2 VIEW (04/21/2025 2:43 PM EDT) Anatomical Region Laterality Modality Pelvis Computed Radiogr aphy 04/21/2025 4:15 PM EDT Impressions 04/21/2025 4:17 PM EDT No displaced fracture or dislocation. Narrative 04/21/2025 4:17 PM EDT XR PELVIS 1-2 VIEW Referring clinician's provided indication for this examination in Epic: S/P Fall COMPARISON: CT ABDOMEN/PELVIS WITHOUT CONTRAST FINDINGS: Multiple external sheets overlie the right proximal femur, limiting evaluation. Evaluation of the sacrum is limited by overlying bowel contents. No displaced fracture. Intact sacroiliac joints and pubic symphysis. Frontal evaluation of the hips demonstrates mild degenerative changes. Procedure Note Rut Ackerman MD - 04/21/2025 XR PELVIS 1-2 VIEW Referring clinician's provided indication for this examination in [facility]:S/P Fall COMPARISON: CT ABDOMEN/PELVIS WITHOUT CONTRAST FINDINGS: Multiple external sheets overlie the right proximal femur, limitingevaluation. Evaluation of the sacrum is limited by overlying bowelcontents. No displaced fracture. Intact sacroiliac joints and pubic symphysis.Frontal evaluation of the hips demonstrates mild degenerative changes. IMPRESSION: No displaced fracture or dislocation. us Jay Carrera MD IMG XR PELVIS Final Resul t * XR Humerus (Left) (04/21/2025 2:43 PM EDT) Anatomical Region Laterality Modality Arm Left Computed Radiogr aphy 04/21/2025 4:12 PM EDT Impressions 04/21/2025 4:15 PM EDT No fracture or dislocation in the left elbow or left humerus. Soft tissue laceration along the olecranon, without retained radiopaque foreign body. Narrative 04/21/2025 4:15 PM EDT XR ELBOW 3 OR MORE VIEWS (LEFT), XR HUMERUS (LEFT) Referring clinician's provided indication for this examination in [facility]: Pain; S/P Fall COMPARISON: None FINDINGS: Deep soft tissue laceration along the dorsal aspect of the olecranon and multiple bubbles of soft tissue gas. No retained radiopaque foreign body. No acute fracture, traumatic malalignment, or dislocation. No other joint effusion. Procedure Note Rut Ackerman MD - 04/21/2025 XR ELBOW 3 OR MORE VIEWS (LEFT), XR HUMERUS (LEFT) Referring clinician's provided indication for this examination in [facility]:Pain; S/P Fall COMPARISON: None FINDINGS: Deep soft tissue laceration along the dorsal aspect of the olecranon andmultiple bubbles of soft tissue gas. No retained radiopaque foreign body.No acute fracture, traumatic malalignment, or dislocation. No other jointeffusion. IMPRESSION: No fracture or dislocation in the left elbow or left humerus. Soft tissuelaceration along the olecranon, without retained radiopaque foreignbody. us Jay Carrera MD [facility] [place]R UPPER EXTREMITY Annika l Result * XR ELBOW 3 OR MORE VIEWS (LEFT) (04/21/2025 2:43 PM EDT) Anatomical Region Laterality Modality Elbow Left Computed Radiogr aphy 04/21/2025 4:12 PM EDT Impressions 04/21/2025 4:15 PM EDT No fracture or dislocation in the left elbow or left humerus. Soft tissue laceration along the olecranon, without retained radiopaque foreign body. Narrative 04/21/2025 4:15 PM EDT XR ELBOW 3 OR MORE VIEWS (LEFT), XR HUMERUS (LEFT) Referring clinician's provided indication for this examination in Epic: Pain; S/P Fall COMPARISON: None FINDINGS: Deep soft tissue laceration along the dorsal aspect of the olecranon and multiple bubbles of soft tissue gas. No retained radiopaque foreign body. No acute fracture, traumatic malalignment, or dislocation. No other joint effusion. Procedure Note Rut Ackerman MD - 04/21/2025 XR ELBOW 3 OR MORE VIEWS (LEFT), XR HUMERUS (LEFT) Referring clinician's provided indication for this examination in Epic:Pain; S/P Fall COMPARISON: None FINDINGS: Deep soft tissue laceration along the dorsal aspect of the olecranon andmultiple bubbles of soft tissue gas. No retained radiopaque foreign body.No acute fracture, traumatic malalignment, or dislocation. No other jointeffusion. IMPRESSION: No fracture or dislocation in the left elbow or left humerus. Soft tissuelaceration along the olecranon, without retained radiopaque foreignbody. us Jay DAMICO XR UPPER EXTREMITY Annika l Result * Ethanol, blood (04/21/2025 1:57 PM EDT) ETHANOL <10 <10 mg/dL [facility] Blood 04/21/2025 1:57 PM EDT 04/21/2025 2:08 PM EDT us Jay Carrera MD LAB BLOOD ORDERABLES Final Result [address] [address] * LFTs (hepatic panel) (04/21/2025 1:57 PM EDT) Pathologist [facility] ALKALINE PHOSPHATASE 60 39 - 117 U/L [facility] TOTAL BILIRUBIN 0.4 0.0 - 1.2 mg/dL [facility] DIRECT BILIRUBIN 0.1 0.0 - 0.2 mg/dL [facility] Bilirubin (Indirect) NOT CALCULATED 0 - 1.5 mg/dL [facility] AST 36 0 - 37 U/L [facility] ALT 29 0 - 40 U/L [facility] TOTAL PROTEIN 7.1 6.5 - 8.0 g/dL [facility] ALBUMIN 4.5 3.9 - 4.8 g/dL [facility] GLOBULIN 2.6 1 - 4.8 g/dL [facility] A/G Ratio 1.73 1.00 - 4.80 RATIO [facility] Blood 04/21/2025 1:57 PM EDT 04/21/2025 2:08 PM EDT us Jay Carrera MD LAB BLOOD ORDERABLES Final Result [address] [address] * CBC and differential (04/21/2025 1:57 PM EDT) WBC 8.99 4.00 - 11.00 K/uL [facility] RBC 5.10 4.50 - 5.90 M/uL [facility] HGB 15.4 13.5 - 17.5 g/dL [facility] HCT 45.3 41.0 - 53.0 % [facility] PLT 160 150 - 450 K/uL [facility] MCV 88.8 80.0 - 100.0 fL [facility] MCH 30.2 27.0 - 31.0 pg [facility] MCHC 34.0 32.0 - 36.0 g/dL [facility] RDW 13.5 11.5 - 14.5 % [facility] MPV 9.5 8.4 - 12.0 fL [facility] NRBC 0.00 0.00 /100 WBCs [facility] ABSOLUTE NRBC 0.00 0.00 K/uL [facility] DIFF METHOD Auto [facility] NEUTS 69.7 48.0 - 76.0 % [facility] LYMPHS 24.0 18.0 - 41.0 % [facility] MONOS 5.6 4.0 - 11.0 % [facility] EOS 0.3 0.0 - 5.0 % [facility] BASOS 0.2 0.0 - 1.5 % [facility] Granulocytes, immature (%) 0.2 0.0 - 0.9 % [facility] ABSOLUTE NEUTS 6.26 1.92 - 7.60 K/uL [facility] ABSOLUTE LYMPHS 2.16 0.72 - 4.10 K/uL [facility] ABSOLUTE MONOS 0.50 0.16 - 1.10 K/uL [facility] ABSOLUTE EOS 0.03 0.00 - 0.50 K/uL [facility] ABSOLUTE BASOS 0.02 0.00 - 0.15 K/uL [facility] Granulocytes, immature 0.02 0.00 - 0.09 K/uL [facility] Blood 04/21/2025 1:57 PM EDT 04/21/2025 2:08 PM EDT us Jay Carrera MD LAB BLOOD ORDERABLES Final Result [facility] [address] [place] [address] * (ABNORMAL) Acetaminophen level (04/21/2025 1:57 PM EDT) ACETAMINOPHEN <5.0(L) 15.0 - 30.0 ug/mL [facility] Blood 04/21/2025 1:57 PM EDT 04/21/2025 2:08 PM EDT Jay Carrera MD LAB BLOOD ORDERABLES Final Result Performing Organization Address City/[facility]/ZIP Co de Phone Number [address] [address] * (ABNORMAL) Salicylates (04/21/2025 1:57 PM EDT) SALICYLATES <0.3(L) 2.8 - 19.9 mg/dL [facility] Blood 04/21/2025 1:57 PM EDT 04/21/2025 2:08 PM EDT Jay Carrera MD LAB BLOOD ORDERABLES Final Result Performing Organization Address [facility] Co de Phone Number [address] [address] * Basic metabolic panel (04/21/2025 1:57 PM EDT) SODIUM 142 133 - 146 mmol/L [facility] CHLORIDE 104 96 - 108 mmol/L [facility] POTASSIUM 4.4 3.3 - 5.1 mmol/L [facility] CO2 23 21 - 35 mmol/L [facility] BUN 10 6 - 19 mg/dL [facility] CREATININE 0.80 0.5 - 1.5 mg/dL [facility] GLUCOSE 86 70 - 99 mg/dL [facility] CALCIUM 9.7 8.4 - 10.3 mg/dL [facility] EGFR 105 >59 mL/min/1.7 3m2 [facility] Comment:Estimated glomerular filtration rate calculated using the CKD-EPI refit equation. ANION GAP 19 10 - 20 mmol/L [facility] Blood 04/21/2025 1:57 PM EDT 04/21/2025 2:08 PM EDT us Jay Carrera MD LAB BLOOD ORDERABLES Final Result [facility] [address] [place] [address] * CT CERVICAL SPINE WITHOUT CONTRAST (04/21/2025 12:12 PM EDT) Anatomical Region Laterality Modality C-spine Computed Tomogra phy 04/21/2025 1:00 PM EDT Impressions 04/21/2025 1:08 PM EDT 1. No acute intracranial findings. 2. No acute fracture or traumatic malalignment of the cervical spine. Narrative 04/21/2025 1:[address] HEAD WITHOUT CONTRAST, CT CERVICAL SPINE WITHOUT CONTRAST Referring clinician's provided indication for this examination in Epic: * Head trauma, mod-severe TECHNIQUE: CTs of the head and cervical spine were performed without intravenous contrast using tailored dose modulation techniques. Images were reconstructed in the axial, coronal, and sagittal planes. COMPARISON: None. FINDINGS: HEAD: Brain Parenchyma: Normal. No midline shift, mass effect, parenchymal hemorrhage, or evidence of acute territorial infarct. Ventricular System and Extra-Axial Spaces: Normal. No extra-axial fluid collections. Basal cisterns are patent. No hydrocephalus. Osseous and Extracranial Structures: No calvarial fracture or significant soft tissue hematoma. Moderate opacification of the ethmoid air cells. No orbital abnormality. CERVICAL SPINE: Alignment and Vertebrae: Alignment is normal. Vertebral bodies and posterior elements are intact. Discs and Endplates: Multilevel degenerative changes. Other Findings: None. Procedure Note Sergey Handley MD - 04/21/2025 CT HEAD WITHOUT CONTRAST, CT CERVICAL SPINE WITHOUT CONTRAST Referring clinician's provided indication for this examination in Epic: *Head trauma, mod-severe TECHNIQUE: CTs of the head and cervical spine were performed withoutintravenous contrast using tailored dose modulation techniques. Imageswere reconstructed in the axial, coronal, and sagittal planes. COMPARISON: None. FINDINGS: HEAD: Brain Parenchyma: Normal. No midline shift, mass effect, parenchymalhemorrhage, or evidence of acute territorial infarct. Ventricular System and Extra-Axial Spaces: Normal. No extra-axial fluidcollections. Basal cisterns are patent. No hydrocephalus. Osseous and Extracranial Structures: No calvarial fracture or significantsoft tissue hematoma. Moderate opacification of the ethmoid air cells. Noorbital abnormality. CERVICAL SPINE: Alignment and Vertebrae: Alignment is normal. Vertebral bodies andposterior elements are intact. Discs and Endplates: Multilevel degenerative changes. Other Findings: None. IMPRESSION: 1. No acute intracranial findings. 2. No acute fracture or traumatic malalignment of the cervical spine. Jay Carrera MD IMG CT XSPECIALTY ORDERABLE S Final Result * CT HEAD WITHOUT CONTRAST (04/21/2025 12:12 PM EDT) Anatomical Region Laterality Modality Head Computed Tomogra phy 04/21/2025 1:00 PM EDT Impressions 04/21/2025 1:08 PM EDT 1. No acute intracranial findings. 2. No acute fracture or traumatic malalignment of the cervical spine. Narrative 04/21/2025 1:[address] HEAD WITHOUT CONTRAST, CT CERVICAL SPINE WITHOUT CONTRAST Referring clinician's provided indication for this examination in Epic: * Head trauma, mod-severe TECHNIQUE: CTs of the head and cervical spine were performed without intravenous contrast using tailored dose modulation techniques. Images were reconstructed in the axial, coronal, and sagittal planes. COMPARISON: None. FINDINGS: HEAD: Brain Parenchyma: Normal. No midline shift, mass effect, parenchymal hemorrhage, or evidence of acute territorial infarct. Ventricular System and Extra-Axial Spaces: Normal. No extra-axial fluid collections. Basal cisterns are patent. No hydrocephalus. Osseous and Extracranial Structures: No calvarial fracture or significant soft tissue hematoma. Moderate opacification of the ethmoid air cells. No orbital abnormality. CERVICAL SPINE: Alignment and Vertebrae: Alignment is normal. Vertebral bodies and posterior elements are intact. Discs and Endplates: Multilevel degenerative changes. Other Findings: None. Procedure Note Sergey Handley MD - 04/21/2025 CT HEAD WITHOUT CONTRAST, CT CERVICAL SPINE WITHOUT CONTRAST Referring clinician's provided indication for this examination in Epic: *Head trauma, mod-severe TECHNIQUE: CTs of the head and cervical spine were performed withoutintravenous contrast using tailored dose modulation techniques. Imageswere reconstructed in the axial, coronal, and sagittal planes. COMPARISON: None. FINDINGS: HEAD: Brain Parenchyma: Normal. No midline shift, mass effect, parenchymalhemorrhage, or evidence of acute territorial infarct. Ventricular System and Extra-Axial Spaces: Normal. No extra-axial fluidcollections. Basal cisterns are patent. No hydrocephalus. Osseous and Extracranial Structures: No calvarial fracture or significantsoft tissue hematoma. Moderate opacification of the ethmoid air cells. Noorbital abnormality. CERVICAL SPINE: Alignment and Vertebrae: Alignment is normal. Vertebral bodies andposterior elements are intact. Discs and Endplates: Multilevel degenerative changes. Other Findings: None. IMPRESSION: 1. No acute intracranial findings. 2. No acute fracture or traumatic malalignment of the cervical spine. Jay Carrera MD [facility] [place] [place]NECK Final Resu lt from Last 3 Months Insurance [employer] [facility] [facility] [employer] MEDICARE REPLACEMENT JUSTIN WHEELER [facility] MEDICARE PART A & B [employer] [facility] [facility] [employer] MEDICARE REPLACEMENT JUSTIN WHEELER [facility] MEDICARE PART A & B [facility] MEDICARE REPLACEMENT [facility] MEDICARE REPLACEMENT [facility] MEDICARE REPLACEMENT MEDICARE PART A & B [facility] CARE MEDICARE REPLACEMENT [facility] MEDICARE REPLACEMENT MEDICARE PART A & B [facility] MEDICARE REPLACEMENT MEDICARE PART A & B [employer] [facility] MEDICARE REPLACEMENT MEDICARE PART A & B [facility] INSURANCE Advance Directives For more information, please contact: [phone] (9AM - 5PM [place], Friday-Friday) * Full Code (Latest Code Status on File) Date Activated Date Inactivated Comments 04/22/2025 3:52 PM Question Answer Comments Code Status Confirmed With: Patient * Full Code Date Activated Date Inactivated Comments 09/16/2022 6:14 AM 04/22/2025 3:52 PM Question Answer Comments Code Status Confirmed With: Patient * Full Code (Presumed) Date Activated Date Inactivated Comments 05/11/2019 8:26 PM 05/13/2019 1:44 PM * Full Code (Presumed) Date Activated Date Inactivated Comments 05/09/2019 4:57 PM 05/10/2019 6:38 PM * Full Code (Presumed) Date Activated Date Inactivated Comments 07/16/2017 2:44 PM 07/17/2017 2:54 PM Care Teams Terrazzo Polisher Relationship Specialty Start Date End Date Won Lino PA [address] [place] [id number] PCP - General Physician Watch Crystal Grinder 03/22/25 Connor Haque MD Internal Medicine 03/01/19 Additional Source Comments The information contained in this document represents components of the legal health record. It is not the complete legal health record.[facility]
--- OUTSIDE RECORDS SUMMARY | 2025-04-27 00:52 | XMS_ITS | Encounter Summary ---
Author Organization [facility] Address [address] [place] [address] Phone Care Team Providers Care Insole Tack Puller Hand Name Role Phone Connor Haque MD Unavailable Unavailable Scott Davey NP Primary Care Provide r Won Lino Primary Care Provider [phone] Encounter Details Date Type Department Care Team (Late st Contact Info) Description 06/17/2023 Procedure Pass [facility], [address] [place] [address] Social History Tobacco Use Types Packs/Day Years [...] AM EDT documented as of this encounter Last Filed Vital Signs Vital Sign Reading Time Taken Comments Blood Pressure - - Pulse - - Temperature - - Respiratory Rate - - Oxygen Saturation - - Inhaled Oxygen Concentration - - Weight 68 kg (150 lb) 06/18/2023 10:42 AM EST Height 160 cm (5' 3 ) 06/18/2023 10:42 AM EST Body Mass Index 26.57 06/18/2023 10:42 AM EST documented in this encounter Plan of Treatment Not on file documented as of this encounter Visit Diagnoses Not on filedocumented in this encounter Additional Health Concerns 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 It is not the complete legal health record.[facility]
--- OUTSIDE RECORDS SUMMARY | 2025-04-27 00:52 | XMS_ITS | Encounter Summary ---
Author Organization [employer] Address [address] [place] [address] [place] [address] Care Team Providers Care Journeyman Carpenter Name Role Phone Roya King Unavailable Won Lino Primary Care Provider [phone] Reason for Visit * Reason Onset Date Comments Med Refill 04/06/2025 Encounter Details Date Type Department Care Team ([facility] st Contact Info) Description 04/06/2025 Refill [facility] [address] [place] [phone] Won Lino PA [address] [place], [place] [phone] Transgender man on hormone therapy Social History [...] Encounter - [facility] [place] - 04/06/2025 11:24 AM EDT Sent in yesterday documented in this encounter Plan of Treatment Not on file documented as of this encounter Visit Diagnoses Diagnosis Transgender man on hormone therapy documented in this encounter Care Teams Journeyman Carpenter Relationship Specialty Start Date End Date Won Lino PA [address] [place] [address] PCP - General Family Medicine 06/17/23 Roya King [address] [place] [address] 02/20/23 documented as of this encounter
--- OUTSIDE RECORDS SUMMARY | 2025-04-27 00:52 | XMS_ITS | Encounter Summary ---
Author Organization [employer] Address [address] [place] [address] 7 [place] [address] Care Team Providers Care Territory Account Representative Name Role Phone Roya King Unavailable Bonita White Primary Care Provider [phone] Encounter Details Date Type Department Care Team (Late st Contact Info) Description 03/03/2025 Telephone [facility] [address] [place] [address] Bonita White PA [address] [place], [place] [phone] Social History Tobacco Use Types Packs/Day Years [...] * Telephone Encounter - Alexandra Meza - 03/03/2025 2:47 PM EDT Prescribing Provider: bonita white Medication Name:clonazepam & ipratropruim inhaler Dosage:2 mg & 20-100 mcg/act inhaler 5 Days or More Supply: No Pharmacy: Please only send to [facility] in [place] until they move in the future [facility] [address] [place], [place] - [address] [facility] [address] [facility] [address] documented in this encounter Plan of Treatment Not on file documented as of this encounter Visit Diagnoses Not on filedocumented in this encounter Care Teams Territory Account Representative Relationship Specialty Start Date End Date Bonita White PA [address] [place] [address] PCP - General Family Medicine 06/17/23 Roya King [address] [place] [address] 02/20/23 documented as of this encounter
--- OUTSIDE RECORDS SUMMARY | 2025-04-27 00:52 | XMS_ITS | Encounter Summary ---
Author Organization [employer] Address [address] [place] [address] 7 [place] [address] Care Team Providers Care Tool Trouble Shooter Name Role Phone Roya King Unavailable Won Lino Primary Care Provider [phone] Encounter Details Date Type Department Care Team (Late st Contact Info) Description 12/22/2024 Refill [facility] [address] [facility] [address] [place] [phone] Won Lino PA [address] [place] [address] Social History Tobacco Use Types Packs/Day Years [...] encounter Miscellaneous Notes * Telephone Encounter - JASWINDER Martinez - 12/31/2024 1:05 PM EDT * Telephone Encounter - Fior Schmid RN - 12/24/2024 12:30 PM EDT Pt notified and updated. * Telephone Encounter - Nakia Causey LPN - 12/23/2024 3:40 PM EDT Spoke to pt stated is not able to [facility] stated pharmacist is asking him to many questions about personal info and stating provider did not authorize med. Pt is asking that we send to [email or web address] on [address] [place] [address] in [place] . * Telephone Encounter - Ashely Mcdonald - 12/23/2024 2:50 PM EDT Patient is returning a call from nursing about meds, please try gain Call back # [phone] * Telephone Encounter - Christiano Thomas - 12/22/2024 12:05 PM EDT Pt req to talk with nurse about medication documented in this encounter Plan of Treatment Not on file documented as of this encounter Visit Diagnoses Not on filedocumented in this encounter Care Teams Tool Trouble Shooter Relationship Specialty Start Date End Date Won Lino PA [address] [place] [address] PCP - General Family Medicine 06/17/23 Roya King [address] [place] [address] 02/20/23 documented as of this encounter
--- OUTSIDE RECORDS SUMMARY | 2025-04-27 00:52 | XMS_ITS | Encounter Summary ---
Author Organization [employer] Address [address] [place] [address] [place] [address] Care Team Providers Care Web Application Dev Specialist Name Role Phone Suad Haque Unavailable Unavailable Suad Haque Primary Care Provider Unavailab Roya Owens Unavailable Carter Gloria Unavailable [phone] Obey Sánchez Unassnadege Primary Care Provider Won Zabala Primary Care Provider [phone] Encounter Details Date Type Department Care Team (Late st Contact Info) Description 12/13/2022 [facility] [address] [place] [address] Kemi Arita FNP [address] [place] [address] Social History Tobacco Use Types Packs/Day Years [...] Orientation Asexual 12/29/2024 10 :22 AM EDT COVID-19 Exposure Response Date Recorded In the last 10 days, have yo u been in contact with someone who was confirmed or suspected to have Coronavirus/COVID-19? No / Unsure 12/13/2022 4:07 PM EDT documented as of this encounter Plan of Treatment Not on file documented as of this encounter Visit Diagnoses Not on filedocumented in this encounter Care Teams Web Application Dev Specialist Relationship Specialty Start Date End Date Suad Haque FNP PCP - General Family Medicine 09/24/22 06/09/23 Obey Sánchezssigned PCP - General Family Medicine 06/10/23 3 Won Lino PA [address] [place] [address] PCP - General Family Medicine 06/17/23 Suad Haque FNP Family Medicine 05/31/22 06/16/23 Roya King [address] [place] [address] 02/20/23 Gloria Carter [address] [place] [address] 05/07/23 04/06/24 documented as of this encounter
--- OUTSIDE RECORDS SUMMARY | 2025-04-27 00:52 | XMS_ITS | Encounter Summary ---
Author Organization [employer] Address [address] [place] [address] [place] [address] Care Team Providers Care Activities Specialist Name Role Phone Roya King Unavailable Won Lino Primary Care Provider [phone] Reason for Visit * Reason Comments Med Refill Encounter Details Date Type Department Care Team (Late st Contact Info) Description 04/06/[address] [facility] [address] [place] [phone] Won Lino PA [address] [place], [place] [phone] Schizoaffective disorder, bipolar type (CMS/HCC) Social History [...] Encounter - [facility] [place] - 04/06/2025 4:26 PM EDT Duplicate, already sent documented in this encounter Plan of Treatment Not on file documented as of this encounter Visit Diagnoses Diagnosis Schizoaffective disorder, bipolar type (CMS/HCC) Schizoaffective disorder, unspecified condition documented in this encounter Care Teams Activities Specialist Relationship Specialty Start Date End Date Won Lino PA [address] [place] [address] PCP - General Family Medicine 06/17/23 Roya King [address] [place] [address] 02/20/23 documented as of this encounter
--- OUTSIDE RECORDS SUMMARY | 2025-04-27 00:52 | XMS_ITS | Encounter Summary ---
Author Organization [facility] Address [address] [facility] [address] [place] [address] Phone Care Team Providers Care Eeg Tech Name Role Phone Kemi Dumont CASEWORKER INTAKE Primary Care Provider [phone] Connor Haque MD Unavailable Unavailable Suad Haque CASEWORKER INTAKE Primary Care Provider Scott Davey CASEWORKER INTAKE Primary Care Provide r Won Lino Primary Care Provider [phone] Encounter Details Date Type Department Care Team (Late st Contact Info) Description 05/10/2019 Procedure Pass OR Admitting Dept - [facility] Department [address] [place] [address] Social History Tobacco Use Types Packs/Day Years [...] documented as of this encounter Care Teams Eeg Tech Relationship Specialty Start Date End Date Kemi Dumont NP PCP - General 03/01/19 12/17/21 Suad Haque NP [address] [place] [address] PCP - General Family Medicine 12/18/21 08/04/22 Scott Davey NP [address] [place] [address] PCP - General 08/05/22 03/21/25 Won Lino PA [address] [place] [address] PCP - General Physician Acquisition Marketing Coordinator 03/22/25 Connor Haque MD Internal Medicine 03/01/19 documented as of this encounter Additional Source Comments The information contained in this document represents components of the legal health record. It is not the complete legal health record.[facility]
--- NOTE | 2025-04-27 01:54 | ED_ITS ---
HPI - General Adult General Chief complaint: Fall Stated complaint: left elbow injury, CP Time Seen by Provider: 04/27/25 01:53 Source: patient Mode of arrival: ambulatory Limitations: no limitations History of Present Illness ED Provider: Gunnar ANDERSON HPI narrative: The patient is a 55-year-old male with a history of epilepsy and narcolepsy presenting to the ED for evaluation of multiple complaints of pain. Patient reports last he woke up and was walking down the stairs to have a cigarette when he suffered a mechanical fall. Patient did not seek medical care at that time, however later that day suffered an episode of seizure activity, at which time EMS was activated, it is not clear who activated EMS. The patient was seen at [facility], however patient reports that due to his behavior, which he does not recall in his postictal state, he was placed in the psych [facility]. Patient states he has not recall what imaging/evaluation was performed at [facility]. The patient denies any recurrent seizures, falls, or other trauma since the incident . The patient reports he has been experiencing ongoing head and neck pain, left rib pain, left hip pain, and left elbow pain since the fall. Patient states in general the areas of pain increased tonight, at which time he took Klonopin, and presents to the ED for re-evaluation. Related Data Previous Rx's ?Medication ?Instructions ?Recorded amoxicillin 875 mg-potassium 1 tab PO Q12H 10 days #20 tabs 06/13/21 clavulanate 125 mg tablet (Augmentin) Allergies Allergy/AdvReac Type Severity Reaction Status Date / Time cephalexin (From Keflex) Allergy Unknown Verified 04/26/25 22:26 haloperidol (From Haldol) Allergy Unknown Verified 04/26/25 22:26 latex Allergy Unknown Verified 04/26/25 22:26 Review of Systems Review of Systems: Yes all other systems are reviewed and are negative [facility] Past Medical History Medical History (Updated 04/27/25 @ 06:08 by Gunnar Alonso PA-C) Transgender Epilepsy Narcolepsy Social History Social History Smoked in Last 30 Days: Yes Substance Use Type: Marijuana Advance Directives: No Advance Directives Information Provided: Yes Do you have a plan to hurt others: No Plan Physical Exam ED Vital Signs: Vital Signs - 24 hr 04/26/25 22:24 04/27/25 00:42 04/27/25 05:43 Temperature 97.5 F 98.5 F 98.1 F Pulse Rate 100 92 92 Respiratory Rate 15 16 16 Blood Pressure 145/80 H 143/81 H 114/68 Pulse Oximetry 99 96 96 Oxygen Delivery Method Room Air Room Air Room Air BMI result Body Mass Index 24.5 CONSTITUTIONAL: The patient appears comfortable, non-toxic, well nourished and in no acute distress. Vital signs as documented. HEAD: Atraumatic, normocephalic. EYES: EOMs grossly intact, pupils equal, conjunctiva clear, no exudate. ENT: Nares patent, no discharge. Airway patent, no audible stridor, visible mucosa is pink and moist without noted lesions. NECK: Trachea is midline, no obvious masses or gross abnormalities. CHEST: Symmetric movement, normal appearance. LUNGS: LS present and CTAB, no w/r/r. Non-labored work of breathing. CARDIAC: Regular Rhythm, S1/S2 appreciated, no murmurs, rubs or gallops. ABDOMEN: Abdomen soft and non-tender x4 quadrants, no palpable masses or organomegaly. : Deferred. EXTREMITIES: Normal tone, moves all extremities spontaneously without reported pain. There is a large ecchymotic area noted to the left lateral thigh with no evidence of new bleeding, there is an approximate 0.5 cm by 2 cm skin tear noted to the olecranon process of the left elbow, with early maceration due to excessive moisture of the areas surrounding the skin tear, no evidence of cellulitis or abscess. Distal CSM is intact. No other obvious acute injury or deformity noted. NEURO: Alert and oriented x3, CN II-XII appear grossly intact. Cerebellar Functioning grossly intact. No obvious sensory or motor deficits. Speech clear and appropriate. PSYCH: normal affect, appropriate eye contact, fluid speech, with appropriate response to questioning. No reported suicidality or homicidality. SKIN: Warm, dry, color appropriate, normal turgor. No rashes noted. Medical Decision Making Medical Decision Making MDM Narrative: 2:10 AM 04/27/2025 (Merlyn ANDERSON): The patient is a 55-year-old male with a history of epilepsy and narcolepsy presenting to the ED for evaluation of multiple complaints of pain. Patient reports last he woke up and was walking down the stairs to have a cigarette when he suffered a mechanical fall. Patient did not seek medical care at that time, however later that day suffered an episode of seizure activity, at which time EMS was activated, it is not clear who activated EMS. The patient was seen at [facility], however patient reports that due to his behavior, which he does not recall in his postictal state, he was placed in the psych hidalgo. Patient states he has not recall what imaging/evaluation was performed at [facility]. The patient denies any recurrent seizures, falls, or other trauma since the incident . The patient reports he has been experiencing ongoing head and neck pain, left rib pain, left hip pain, and left elbow pain since the fall. Patient states in general the areas of pain increased tonight, at which time he took Klonopin, and presents to the ED for re-evaluation. In the ED patient is in no acute distress, sleeping comfortably, but wakes readily to verbal and physical stimulus. The patient has a healing ecchymosis of the left lateral thigh, there is also a skin tear noted of the left elbow which appears in early stages of maceration from too much moisture, no evidence of cellulitis or abscess. The patient reports tenderness to palpation of the entire spine, however is without grimace or evidence of discomfort on exam. At this time patient is resting comfortably, no evidence of new or acute trauma. The patient is records from [facility] will be requested to ensure no unnecessary radiation exposure by duplication of imaging. 5:56 AM 04/27/2025 (Merlyn ANDERSON): While awaiting medical records from [facility], the patient just now emerged from his room highly anxious and demanding to be discharged. Patient stated he was feeling overwhelmed and anxious and wanted to leave the ED. The patient declined to hold a risks/benefit discussion with this provider and left the ED without treatment complete. The patient was seen ambulating with a steady gait when exiting the ED. the patient made no statements of suicidal or homicidal ideation, no indication for holding the patient against his will. 6:11 AM 04/27/2025 (Merlyn ANDERSON): The patient's records from [facility] just arrived, review of medical records indicates patient was evaluated on 04/[address] head and neck which were negative for intracranial hemorrhage, with no calvarial or cervical spine fracture. Additionally the patient is elbow x-ray shows a soft tissue laceration with soft tissue gas but without any radiopaque foreign body, no acute fracture or traumatic malalignment or dislocation of the elbow or humerus. The patient's x-ray of the pelvis showed no displaced fracture. Patient appears to have had a thorough workup at [facility] 1 week ago at time of the patient's fall, without evidence of acute traumatic fracture or other injury. No indication for call back. Admission/Observation Consideration of admission/observation: Escalation of care including admission/observation considered Discharge Plan Discharge Clinical Impression: Fall Qualifiers: Encounter type: initial encounter Qualified Code(s): W19.XXXA - Unspecified fall, initial encounter Patient Disposition: Left W/O Completing Treatment Prescriptions: No Action amoxicillin-pot clavulanate [Augmentin] 875-125 mg tablet 1 tab PO Q12H 10 Days Qty: 20 0RF
[2025-04-27 05:43] VITALS: BP 114/68; PULSE 92; RESP 16; TEMP 36.7; O2SAT 96
--- NOTE | 2025-04-27 05:58 | PC.NURSE ---
While RN was medicating another pt, RN was told by other staff that pt ran out of his room distraught saying I'm too hot I got to go. I need to get my phone! I get anxious when I'm hot. Pt refused to stay for his care in this ED; pending results from his visit at [facility] were unsuccessful as he refused to stay and wait for a plan in this ED. MD and charge aware.
== END 2025-04-27 06:20 | disposition left against medical advice (07) ==
PROVIDERS: Emergency Provider Emergency Medicine; PCP Physician Assistant Medical
DX: S59.902A Unspecified injury of left elbow, initial encounter (principal); R07.89 Other chest pain; W10.9XXA Fall (on) (from) unspecified stairs and steps, initial encounter; Y93.9 Activity, unspecified; Y92.9 Unspecified place or not applicable; Y99.8 Other external cause status
CPT/HCPCS: 71046; 99283

== ENCOUNTER → 2025-04-26 22:40 | Outpatient (BNV) | payer OTHER, SELFPAY | PROVIDERS: PCP Physician Assistant Medical; Visit Provider Radiology Diagnostic Radiology | DX: R07.9 Chest pain, unspecified (principal) | CPT/HCPCS: 71046 ==